=== PATIENT | male | born 1970 | race Caucasian/White ===

== ENCOUNTER 2023-12-23 18:15 | Inpatient (IN) | payer OTHER, SELFPAY ==
[2023-12-23] VITALS (9 sets, daily range): BP systolic 151–175; BP diastolic 74–98; BMI 22.8; BMI 20.4
--- NOTE | 2023-12-23 13:37 | ED.GENMED ---
History of Present Illness
General
Chief Complaint: Substance Abuse
Source: patient
Time Seen by Provider: 12/23/23 13:23
History of Present Illness
History of Present Illness:
53yoM with a history of IV drug use [facility] for evaluation of vomiting. Patient was arrested yesterday. Last use of heroin was yesterday morning. He reports vomiting continuously since last night. Emesis appears to be coffee
ground colored. EMS saw the vomitus and did confirm that it was coffee ground emesis. He is also having withdrawal symptoms including anxiety, tremors, and sweating. Patient also endorses abdominal pain. Patient was sent to the ED due to concern for
dehydration. He received PO Zofran prehospital. Patient is not on any prescription medications but has not seen a PCP in many years. He denies any drug or alcohol use other than heroin. He smokes 1-2 cigarettes/day. Previous abdominal surgeries
include a colon resection in 2005 from perforated diverticulitis.
Phy Exam
Physical Exam
Physical Exam:
Ill appearing, tremulous
General Physical Exam
General Presentation: moderate distress
General Skin: warm and dry
General Habitus: normal
General Mental: alert
Cardiovascular Exam
Cardiovascular Exam: regular rate/rhythm
Pulmonary Exam
Pulmonary Exam: lungs clear, no respiratory distress, no rales, no crackles and no wheezing
Gastrointestinal Exam
Gastrointestinal Exam: soft, non distended and surgical scar
Palpation: generalized: Mild tenderness
Elton Coma Scale
Eye Opening: Spontaneous
Verbal Response: Oriented
Motor Response: Obeys Commands
GCS Total Score: 15
Skin Exam
Skin Exam: normal color and warm/dry
Psychiatric Exam
Psychiatric Exam: anxious
Course
Orders/Labs/Results
Orders:
Orders
12/23/23 Breakfast
NPO
Allow oral meds: Yes
Allow clear liquids: Sips of Clears
NPO with Ice Chips: Yes
12/23/23 13:25
Electrocardiogram (*1) Urgent
Reason for Study: Other
Other Reason for Exam: detoxing
EKG- Treatment ONCE
12/23/23 13:31
0.9% Sodium Chloride 1000 ml [Nss] 1,000 ml IV BOLUS
12/23/23 13:32
Type+Screen Urgent
12/23/23 13:44
Iohexol [Omnipaque] See Protocol PO NOW STA
12/23/23 13:45
Buprenorphine [Subutex] 8 mg SL DAILY
12/23/23 14:07
CMP [Comprehensive Metabolic Panel] Urgent
Complete Blood Count/With Diff Urgent
Ferritin Routine
Comment: ADD ON
Folate Routine
Comment: ADD ON
Hepatitis C Antibody Urgent
Comment: ADD ON
Iron Urgent
Comment: ADD ON
Lipase Urgent
Magnesium Urgent
PTT Urgent
Prothrombin Time Urgent
Total Iron Binding Urgent
Comment: ADD ON
Troponin I Urgent
Vitamin B12 Routine
Comment: ADD ON
12/23/23 14:22
Ondansetron Injectable [Zofran] 4 mg IV NOW STA
12/23/23 14:54
Pantoprazole [Protonix IV] 80 mg IV NOW STA
12/23/23 16:28
CT Abd/pelvis W Iv Cont Urgent
Comment:
Reason For Exam: LLQ pain, coffee ground emesis
12/23/23 17:51
Admit/Transfer Patient As Directed
Co-Sign Provider:
Level of Care: Inpatient admission
Assign to:: IMU- Intermediate Care
Physician / Group: Angel
Diagnosis: GI Bleed, Opioid Withdrawal
Reason for Hospitalization: GI Consult, IVFS, PPI, Octreotide
Expected length of stay greater than two midnights?: Yes
ELOS- Estimated Length of Stay in days: 3
I certify the patient meets the requirements for IP care: Yes
PRN Pain Medication Management As Directed
May give lesser potent ordered pain med per pt: Yes
preference::
Protocol:: Medication orders for pain may be administered in a
manner that supports deferring to patient preference
when the pt is:
- Requesting an ordered lesser potent pain medication.
Least to most potent pain medications are defined
as: acetaminophen < NSAID < tramadol < opioids
(morphine, oxycodone, hydromorphone).
- Requesting a lesser dose of the same medication IF
ORDERED.
- Requesting a less intrusive route of administration
if both routes are prescribed by the provider (PO <
IV).
12/23/23 17:52
Code Status As Directed
Resuscitation Status: Full Code
12/23/23 17:58
Add On- LAB Routine
Tests Added?: iron, ferritin, tibc, folate, vit b12
Add On- LAB Urgent
Tests Added?: hepatitis C antibody
12/23/23 18:01
Fentanyl, Urine Urgent
Urine Drug Abuse Screen Urgent
Date Specimen was Collected: 12/23/23
Time Specimen was Collected: 18:04
12/23/23 19:35
0.9% Sodium Chloride 1000 ml [Nss] 1,000 ml IV 125 mls/hr
Buprenorphine [Subutex] 8 mg SL PRN PRN
Ondansetron Injectable [Zofran] 4 mg IV Q6HPRN PRN
Pantoprazole 80 mg/100 ml Nss [Protonix] 80 mg in 100 ml IV Q10H
Tizanidine [Zanaflex] 2 mg PO Q6HPRN PRN
12/23/23 19:35
Electrocardiogram (*1) Routine
Reason for Study: QTc Monitoring
Comment: if not already done in ED
GASTROINTESTINAL CONSULT Routine
Consulting Provider: Ketty Hackett
Was physician already notified: Yes
Activity As Directed
Activity Level: Out of Bed- Chair
Capnography/ETCO2 As Directed
Clinical Opioid Withdrawal Scale (COWS) .PRN
I&O [Intake/ Output] As Directed
Frequency: q12h
Pneumatic Compression Sleeves As Directed
Type: Knee high
Vital Signs As Directed
Frequency: Per unit guidelines
Weight As Directed
Frequency: Daily
DX Deep Vein Thrombosis Video Routine
12/23/23 20:00
H&H Q6H
Octreotide Acetate [Sandostatin] 600 mcg 0.9% Sodium Chloride 500 ml [Nss] 500 ml IV Q12H
12/24/23 00:00
Acetaminophen [Tylenol] 1,000 mg PO Q8
12/24/23 02:00
H&H Q6H
12/24/23 06:00
Complete Blood Count/No Diff IN AM
Comprehensive Metabolic Panel IN AM
12/24/23 08:00
H&H Q6H
Buprenorphine [Subutex] 4 mg SL ONCE PRN PRN
Buprenorphine [Subutex] See Dose Instructions SL ONCE ONE
12/24/23 14:00
H&H Q6H
12/24/23 20:00
H&H Q6H
12/25/23 02:00
H&H Q6H
12/25/23 08:00
Buprenorphine [Subutex] See Dose Instructions SL DAILY
Abnormal Lab Results
12/23/23
14:07
WBC 11.5 H 10^3/uL
(4.8-10.8)
RBC 3.51 L 10^6/uL
(4.70-6.10)
Hgb 10.7 L g/dL
(13.0-18.0)
Hct 31.1 L %
(39.0-52.0)
RDW 15.8 H %
(11.5-14.5)
Absolute Neuts (auto) 9.5 H 10^3/uL
(1.4-6.5)
Neutrophils % 83.0 H %
(42.2-75.2)
Lymphocytes % 11.1 L %
(20.5-51.1)
PT 17.1 H Sec
(11.4-14.6)
APTT 54.2 H Sec
(23.4-35.0)
Carbon Dioxide 31 H mmol/L
(22-30)
BUN 21 H mg/dl
(9-20)
Creatinine 0.5 L mg/dL
(0.7-1.3)
Glucose 125 H mg/dl
(70-99)
AST 163 H U/L
(17-59)
ALT 95 H U/L
(0-50)
Albumin 3.4 L g/dl
(3.5-5.0)
Lipase 352 H U/L
(23-300)
12/23/23 14:07
12/23/23 14:07
Vital Signs
Initial and Last Documented VS:
Initial Vital Signs
Pulse Resp
71 15
12/23/23 13:25 12/23/23 13:25
Last Documented Vital Signs
Temp Pulse Resp BP Pulse Ox
97.5 F 92 16 151/81 97
12/23/23 13:26 12/23/23 18:45 12/23/23 18:45 12/23/23 18:00 12/23/23 18:45
MDM/Problems Addressed
Differential Diagnosis Includes:
53yoM here with vomiting and opioid detox. Last use of heroin was yesterday morning. EMS reports coffee ground emesis. He is afebrile and hemodynamically stable. He is ill appearing and tremulous on exam. No signs of peritonitis on abdominal exam.
Differential diagnosis includes but is not limited to: opioid withdrawal, dehydration, electrolyte abnormality, JEREMIAH, GI bleed
Initial ED plan: Check abdominal labs, magnesium, lactate, coags, type and screen, troponin/EKG, and CT abdomen. IV fluid bolus. Will give Subutex for withdrawal symptoms.
*EKG
Interpreted by ED Provider?: Yes
EKG Intrepretation Date: 12/23/23
Heart Rate: 67
Rate: normal
Rhythm: sinus and PAC's
Interval: normal interval
QRS Pattern: normal QRS
*Critical Care Note
Total Time (30-74mins, 75-104mins- exclusive of procedures): Not Applicable
Update Note
Update Note:
Hemoglobin 10.7, no prior labs to compare to. LFTs and lipase mildly elevated. CT abdomen shows evidence of mild cirrhosis and portal hypertension. Patient given IV Protonix and was admitted for further evaluation and management.
ED Attending Note
-
Portions of this chart may have been created with voice recognition software.� Occasional wrong word or��sound alike� substitutions may have occurred due to the inherent limitations of voice recognition software.
Discharge Plan
Departure
Patient Disposition: Admit
Date of Disposition: 12/23/23
Time of Disposition: 17:27
Presentation/result/management discussed w/ accepting MD/DO: Hospitalist
Discharge Problem:
Coffee ground emesis, Opioid withdrawal
Interventions
Interventions:
*Risk Screen - Suicide Last Done: 12/23/23 13:26
*General Assessment Last Done: 12/23/23 13:26
*Neglect/Abuse Screening Last Done: 12/23/23 13:26
ED- Fall Risk Assessment Last Done: 12/23/23 18:17
*ED COVID-19 Vaccine History Last Done: 12/23/23 13:26
*Nursing Disposition Last Done: 12/23/23 18:56
ED-Psychological Assessment Last Done: 12/23/23 13:32
Discharge Date and Time
Discharge Date/Time: 12/23/23 18:57
[2023-12-23] MEDS: NSS 1000 IV ×2 (14:11→20:44)
[2023-12-23 14:13] LABS: % Basophils 0.1 % (0-2); % Immature Granulocytes 0.3 % (0-0.5); % Lymphocytes 11.1 % (20.5-51.1); % Monocytes 5.5 % (1.7-9.3); Absolute Lymphocytes 1.3 10^3/uL (1.2-3.4); Absolute Monocytes 0.6 10^3/uL (0.1-0.6); Absolute Neutrophils 9.5 10^3/uL (1.4-6.5); Hematocrit 31.1 % (39.0-52.0); Hemoglobin 10.7 g/dL (13.0-18.0); Mean Corp Hgb Conc. 34.4 g/dL (33.0-37.0); Mean Corpuscular Hgb 30.5 pg (27.0-31.0); Mean Corpuscular Volume 88.6 fL (80.0-94.0); Mean Platelet Volume 10.2 fL (7.4-10.4); Nucleated Red Blood Cells % 0 % (-); Platelet Count 258 10^3/uL (130-400); Red Blood Cell Count 3.51 10^6/uL (4.70-6.10); Red Cell Dist. Width 15.8 % (11.5-14.5); White Blood Cell Count 11.5 10^3/uL (4.8-10.8)
[2023-12-23] MEDS: SUBUTEX 8 MG SL (14:20)
[2023-12-23] MEDS: OMNIPAQUE 50 ML PO (14:21)
[2023-12-23 14:23] LABS: INR 1.41; PT 17.1 Sec (11.4-14.6)
[2023-12-23 14:25] LABS: APTT 54.2 Sec (23.4-35.0)
[2023-12-23] MEDS: ZOFRAN 4 MG IV (14:29)
[2023-12-23 14:44] LABS: ALT (SGPT) 95 U/L (0-50); AST (SGOT) 163 U/L (17-59); Albumin 3.4 g/dl (3.5-5.0); Alkaline Phosphatase 93 U/L (38-126); Blood Urea Nitrogen 21 mg/dl (9-20); Calcium 9.1 mg/dl (8.4-10.2); Carbon Dioxide 31 mmol/L (22-30); Chloride 104 mmol/L (98-107); Estimated Creatinine Clearance > 125 ml/min; Glucose 125 mg/dl (70-99); Lipase 352 U/L (23-300); Magnesium 1.7 mg/dl (1.6-2.3); Potassium 3.5 mmol/L (3.5-5.1); Sodium 144 mmol/L (135-145); Total Bilirubin 1.1 mg/dl (0.2-1.3); Total Protein 7.5 g/dl (6.3-8.2); Troponin I 0.029 ng/ml; eGFR > 60.00
[2023-12-23] MEDS: PROTONIX IV 80 MG IV (15:01)
--- NOTE | 2023-12-23 18:01 | HPS.HSE ---
Family Physician
-
Family Physician: Facility [facility]
Chief Complaint
-
Coffee Ground Emesis
History of Present Illness
Patient is a 53 y/o male past medical of IV opioid use disorder who presents with coffee ground emesis. Patient reports he last used IV heroin yesterday morning. Later that day he was picked up by police and is now incarcerated at [facility]. He reports continuous vomiting since last night which he describes as coffee ground. He denies any bright red blood. He denies any similar episodes of coffee-ground emesis, or prior history of GI bleed. He reports diffuse
abdominal discomfort, as well as anxiety, tremors and sweating related to withdrawal.
Medical History
Past Medical History
Past Medical History: Reports Other
Additional Past Medical History:
Perforated Diverticulitis
Opioid Use Disorder
Past Surgical History: Reports Other
Additional Past Surgical History:
Sigmoidectomy
Social History
Tobacco: Smoker (1-2 Cigarettes per day)
Alcohol: None
Drug: IVDA (Heroin)
Family History
Family History: Not pertinent
Allergies / Home Medications
Allergies reflects when Allergies were last updated in [employer].
Home Medications with original date entered in [employer]
Allergy/Medication List:
Allergies
Allergy/AdvReac Type Severity Reaction Status Date / Time
No Known Allergies Allergy Unverified 12/23/23 13:54
Home Medications
acetaminophen 300 mg-codeine 30 mg tablet 1 tab PO .TAPER 12/23/23
clonidine HCl 0.1 mg tablet 0.1 mg PO .TAPER 12/23/23
loperamide 2 mg tablet (Anti-Diarrheal (loperamide)) 2 mg PO TIDPRN PRN diarrhea 12/23/23
ondansetron HCl 4 mg tablet 4 mg PO Q8HPRN PRN nausea 12/23/23
Review of Systems
-
A 12 point ROS was completed and negative except as noted: Yes
Constitutional: Denies Fever or Chills
Respiratory: Denies Cough or Trouble Breathing
Cardiac: Denies Chest Pain or Palpitations
Abdomen/GI: Reports See HPI
Physical Exam
Vital Signs
Vital Signs
Temp Pulse Resp BP Pulse Ox
97.5 F 79 12 155/74 97
12/23/23 13:26 12/23/23 17:30 12/23/23 17:30 12/23/23 17:29 12/23/23 17:30
Physical Exam
General: Well Developed, Conversant and Appears in Distress (Tremulous)
HEENT: Anicteric and Moist mucous membranes
Respiratory: Clear and Non Labored Respirations
Cardiac: S1/S2 and Regular Rhythm
GI: Soft and Tender (Mild throughout)
Musculoskeletal: No Clubbing, No Cyanosis and No Edema
Skin: Warm and Dry
Neuro: Awake, Alert, Oriented and Nonfocal/grossly intact
Psych: Calm
Laboratory Results
-
12/23/23 14:07
Laboratory Results
PT 17.1 Sec (11.4-14.6) H 12/23/23 14:07
INR 1.41 12/23/23 14:07
APTT 54.2 Sec (23.4-35.0) H 12/23/23 14:07
Lactic Acid Cancelled 12/23/23 13:31
Total Bilirubin 1.1 mg/dl (0.2-1.3) 12/23/23 14:07
AST 163 U/L (17-59) H 12/23/23 14:07
ALT 95 U/L (0-50) H 12/23/23 14:07
Alkaline Phosphatase 93 U/L (38-126) 12/23/23 14:07
Troponin I 0.029 ng/ml 12/23/23 14:07
Lipase 352 U/L (23-300) H 12/23/23 14:07
Abd/Pelvis CT Scan:
1. MILD HEPATIC CIRRHOSIS, moderate diffuse hepatic steatosis, and portal hypertension.
2. Small volume of abdominal and pelvic ascites.
3. Diffuse small bowel and colonic wall thickening and submucosal edema most suggestive of PORTAL HYPERTENSIVE ENTEROCOLOPATHY. An infectious enterocolitis is an alternative diagnostic possibility if there are signs/symptoms of infection.
4. Mild esophageal varices.
5. Mild splenomegaly.
6. Previous sigmoidectomy.
7. Fecal impaction in the rectum.
Data Reviewed
-
CT Scan: Report Reviewed by me
Lab Data: Labs Reviewed by me
Impression/Plan
-
Coffee Ground Emesis
-CT scan shows evidence of cirrhosis and esophageal varices
-Consult GI
-Trend serial Hgb
-Continue NPO/IVFs
-Continue pantoprazole and octreotide infusion
-Start empiric antibiotics
Opioid Use Disorder with Acute Withdrawal
-Continue buprenorphine
-Monitor COWS
DVT proph: SCDs
Code Status: Full Code
[2023-12-23 18:39] LABS: Iron 123 ug/dl (49-181)
[2023-12-23 18:50] LABS: Percent Saturation 37 % (20-50); Total Iron Binding Capacity 328 ug/dl (261-462)
--- NOTE | 2023-12-23 19:00 | W.PN.UPDATE ---
Update Note
Progress Note Update
This is an addendum to the H&P written by Lindy Phelan on 12/23/2023. 53-year-old male past medical history of IV heroin use last used yesterday morning. He was arrested yesterday and presents for coffee-ground emesis and abdominal pain.
No other drug use. No alcohol or smoking history.
Transaminitis on labs. CT scan shows mild hepatic cirrhosis, moderate diffuse hepatic steatosis, portal hypertension. Mild esophageal varices, mild splenomegaly. Fecal impaction in the rectum. There is also diffuse small bowel and colonic wall
thickening and submucosal edema suggestive of portal hypertensive enterocolopathy. Infectious enterocolitis is also possible. Last bowel movement was 3 days ago.
Opiate withdrawal protocol. Unclear etiology of coffee-ground emesis. Possibly secondary to Dior-Acharya tear/peptic ulcer disease, less likely secondary to variceal bleeding. N.p.o., Protonix drip, octreotide drip. IV fluids. GI consulted for
potential endoscopy tomorrow. Zosyn to cover infectious enterocolitis. Dulcolax suppository for fecal infection.
[2023-12-23 19:28] LABS: Hepatitis C Antibody Reactive (Negative)
[2023-12-23 19:47] LABS: Folate 14.5 ng/ml (2.76-20); Vitamin B12 879 pg/ml (239-931)
[2023-12-23] MEDS: SANDOSTATIN 500.6 MCG IV (20:45)
[2023-12-23] MEDS: PROTONIX 100 IV (20:45)
--- NOTE | 2023-12-23 20:45 | PTCARENOTE ---
Received pt from ED RN. Pt pulled over from the stretcher to our bed. Pt is AAOx3. NSR on the monitor. On RA O2 sat 95%, lungs clear. Pt uses the urinal. Dulcolax suppository ordered, pt refused. Scattered track galarza from IV drug abuse, and
scattered scabs on b/l LE. NS infusing @ 125 ml/hr. Protonix gtt infusing @ 10 ml/hr. Sandostatin gtt infusing @ 41.7 ml/hr. CHG bath provided. Two correction officers @ bedside. Pt is laying in bed with call cota in reach.
[2023-12-23] MEDS: ZOSYN 50 IV (21:01)
[2023-12-23 21:06] LABS: Hematocrit 29.1 % (39.0-52.0)
[2023-12-23 21:23] LABS: Amphetamines Negative (Negative); Barbiturates Negative (Negative); Benzodiazepines Negative (Negative); Buprenorphine Positive (Negative); Cocaine Positive (Negative); Marijuana Negative (Negative); Methadone Negative (Negative); Methamphetamines Negative (Negative); Opiates Positive (Negative); Phencyclidine Negative (Negative)
[2023-12-23 21:24] LABS: Tricyclic Antidepressants Negative (Negative)
[2023-12-23 21:35] LABS: Fentanyl, Urine Positive (Negative)
--- NOTE | 2023-12-23 21:57 | PTCARENOTE ---
Pt ordered ABO2, pt is refusing to be stuck again. Education provided. JOSE Flanagan notified.
[2023-12-23] MEDS: ZANAFLEX 2 MG PO (23:42)
[2023-12-23] MEDS: MELATONIN 5 MG PO (23:42)
[2023-12-24] VITALS (15 sets, daily range): BP systolic 146–166; BP diastolic 77–91; BMI 20.7
[2023-12-24] MEDS: ZOSYN 50 IV ×3 (02:59→15:38)
[2023-12-24 03:38] LABS: Hematocrit 28.5 % (39.0-52.0); Hemoglobin 10.2 g/dL (13.0-18.0); Mean Corp Hgb Conc. 35.8 g/dL (33.0-37.0); Mean Corpuscular Hgb 31.4 pg (27.0-31.0); Mean Corpuscular Volume 87.7 fL (80.0-94.0); Red Blood Cell Count 3.25 10^6/uL (4.70-6.10); Red Cell Dist. Width 15.5 % (11.5-14.5); White Blood Cell Count 10.4 10^3/uL (4.8-10.8)
[2023-12-24 03:58] LABS: ALT (SGPT) 87 U/L (0-50); AST (SGOT) 140 U/L (17-59); Alkaline Phosphatase 87 U/L (38-126); Blood Urea Nitrogen 22 mg/dl (9-20); Calcium 8.8 mg/dl (8.4-10.2); Carbon Dioxide 27 mmol/L (22-30); Chloride 107 mmol/L (98-107); Estimated Creatinine Clearance > 125 ml/min; Glucose 130 mg/dl (70-99); Potassium 3.7 mmol/L (3.5-5.1); Sodium 143 mmol/L (135-145); Total Bilirubin 1.1 mg/dl (0.2-1.3); Total Protein 6.8 g/dl (6.3-8.2); eGFR > 60.00
[2023-12-24] MEDS: NSS 1000 IV ×2 (05:45→15:38)
--- NOTE | 2023-12-24 07:37 | W.PN.HOSP.TC ---
Addendum entered and electronically signed by Mily Owens MD 12/24/23 21:52:
I saw and evaluated the patient independently. I reviewed the resident�s note and agree with findings and plan as documented by Dr. Schroeder.
GENERAL: well developed, well nourished, male in no apparent distress
HEENT: NC/AT
HEART: regular rate and rhythm, +S1, +S2
LUNGS : clear to auscultation bilaterally
ABDOM: soft, nontender, nondistended, + bowel sounds
EXT: no cyanosis, clubbing, or edema
NEUROLOGIC: grossly intact
Coffee Ground Emesis--possibly due to PUD, DUD, less likely varices, or Dior Acharya tear--apprec GI--s/p EGD with small and superficial duodenal ulcers in bulb and Incidental small gastric AVM, treated with bipolar cautery--follow H&H--transfuse
to keep HGB ~9 if needed--octreotide drip off--cont PPI--clears
Hx of Cirrhosis--cont rocephin for SBP proph--no significant varices noted
Opioid Use Disorder with Acute Withdrawal--Continue buprenorphine--Monitor COWS
essential HTN--restart clonidine (not taking can precipitate rebound)--start hydralazine with holding parameters
DVT proph: SCDs
Code Status: Full Code
Original Note:
Today's Communication/Plan
-
.
Assessment / Plan
Assessment / Plan
The patient is a 53 year old male who presented to ER evaluation for vomiting from the local intermediate. EMS saw the vomitus and did confirm that it was coffee ground emesis. At he present to ER, the patient had withdrawal symptoms including anxiety,
tremors, and sweating. The patient has a PMH of polysubstance use, perforated diverticulitis and Hepatitis C. His abdominal CT showed mild hepatic cirrhosis. GI team did asses the patient and the patient had a GED today showing few, small and
superficial duodenal ulcers in bulb and sweep without high risk stigmata but no GV or duodenal varices.
#Coffee Ground Emesis
-CT scan shows evidence of cirrhosis and esophageal varices
-EGD on 12/23:Few, small and superficial duodenal ulcers in bulb and sweep without high risk stigmata. Small, grade I EV that completely flattened with insufflation (thus no banding performed). No GV or duodenal varices. Incidental small gastric
AVM, treated with bipolar cautery
-Continue IV PPI
-Continue IV Ceftriaxone
-May stop IV Octreotide.
- Trend Hgb with serial CBC: 12/22 hgb 10 and 12/23 Hgb 10.2
-Continue NPO/IVFs
#HT Most likely Secondary
Hydralazine 5 mg Q6H
Hold if SBP<90
#Opioid Use Disorder
-Continue buprenorphine
-Monitor COWS
#Constipation
MiraLAX, Colace as needed
DVT: SCDs
Anticipated Discharge: 24 - 48 hours
Subjective/Interval History
-
Date of Service: December 24, 2023
The patient was seen in his bed. He was complaining some abdominal pain but not severe.
Objective Data
-
Labs:
Laboratory Results
12/23/23 12/24/23 12/24/23
20:41 03:21 03:21
WBC 10.4
Hgb 10.0 L Cancelled 10.2 L
Hct 29.1 L Cancelled
Plt Count
Sodium
Potassium
Chloride
Carbon Dioxide
BUN
Creatinine
Glucose
Calcium
Total Bilirubin
AST
ALT
Alkaline Phosphatase
12/24/23 12/24/23 12/24/23
03:21 08:00 14:00
WBC
Hgb Pending Pending
Hct 28.5 L Pending Pending
Plt Count
Sodium 143
Potassium 3.7
Chloride 107
Carbon Dioxide 27
BUN 22 H
Creatinine 0.6 L
Glucose 130 H
Calcium 8.8
Total Bilirubin 1.1
AST 140 H
ALT 87 H
Alkaline Phosphatase 87
12/24/23
20:00
WBC
Hgb Pending
Hct Pending
Plt Count
Sodium
Potassium
Chloride
Carbon Dioxide
BUN
Creatinine
Glucose
Calcium
Total Bilirubin
AST
ALT
Alkaline Phosphatase
Vital Signs:
Vital Signs
Temp Pulse Resp BP Pulse Ox
98.7 F 78 12 164/89 94
12/24/23 03:02 12/24/23 06:00 12/24/23 06:00 12/24/23 06:00 12/24/23 06:00
I&O
12/23/23 12/24/23 12/25/23
06:59 06:59 06:59
Intake Total 2270.4 / 2270.4
Output Total 350 / 350
Balance 1920.4 / 1920.4
Review of Systems
-
EENT: Reports No Symptoms Reported
Respiratory: Reports No Symptoms
Cardiac: Reports No Symptoms
Abdomen/GI: Reports Abdominal Pain and Other (mid abdominal area )
Genitourinary: Reports No Symptoms
Musculoskeletal: Reports No Symptoms
Skin: Reports No Symptoms
Neuro: Reports No Symptoms
Physical Exam
-
HEENT: Normocephalic and Atraumatic
Respiratory: Clear to Auscultation
Cardiac: Regular Rhythm and S1/S2
GI: Soft, Nontender and Other (mid abdominal pain. No guarding. No rebound )
Musculoskeletal: No Clubbing
Skin: Warm
Neuro: Awake, Alert, Oriented and AO x 3
--- NOTE | 2023-12-24 07:46 | CON.GI ---
Addendum entered and electronically signed by Babak Garcia DO 12/24/23 09:15:
I saw and examined the patient. The [facility]OR OF [facility]'s note was reviewed and I agree with the note.
Comment: Mr Jimenez is a 53 y.o male with past medical history of opioid abuse (heroin, etc), hx of treatment-naive chronic HCV, hx of perforate diverticulitis (s/p prior sigmoidectomy) and recent incarceration (two days ago) who presented from
long-term with witnessed coffee ground emesis by EMS. No prior history of cirrhosis, but notes longstanding HCV which has never been treated. Denies any known liver disease. No other EtOH or NSAIDs. No prior similar episodes or further episodes on
admission. Does note mild abdominal pain in his epigastric region but no melena or bloody stools.HD-stable with labs notable for BUN 20s and Hgb 10s. Transaminses mildly elevated likely 2/2 HCV but no evidence of overt synthetic dysfunction with nml
plts although mildly low albumin 3s. FIB-4 3.44 pts suggestive of advd fibrosis. CT Abd/pelvis revealing mild hepatic cirrhosis in background of hepatic steatosis and portal HTN with small ascites and mild EV and splenomegaly along with incidental
fecal impaction. Etiology suspicious for non-variceal UGIB either in setting of PUD versus gastroduodenitis (2/2 cocaine use seen on UDS, although denies this) versus MWT versus esophagitis versus gastroduodenal erosions. Doubt variceal GI bleed
given his presentation, although may have PHG versus GAVE. However, given his chronic liver disease and concern for cirrhosis on CT imaging agree with empiric IV Octreotide along with IV Ceftriaxone for completion pending further evaluation with EGD.
Recommendations:
- Ensure two large bore IVs at all times
- Keep NPO
- IV PPI gtt along with IV Octreotide gtt until EGD
- IV Ceftriaxone 1 gm q daily for ppx given UGIB and ascites seen on CT
- Plan for EGD today, 12/24/2023, for further evaluation
- Check viral hepatitis serologies including total HAV, HBV serologies with HBsAg, Total HBcAb and HBsAb along with HCV
- Give enemas from below given incidental fecal impaction seen on CT imaging
- Ultimately, will need outpatient f/u with GI for further evaluation of his treatment-naive chronic HCV and likely cirrhosis
- See EGD report for additional findings and recommendations
GI team will continue to follow while inpatient.
Addendum entered and electronically signed by JOSE Casanova 12/24/23 08:25:
MELD 3.0 10
Original Note:
Consultation
-
Date/Time Consultation Requested: 12/23/231944
Date/Time Consultation Performed: 12/24/23 0700
Requesting Provider: Lindy Phelan PA-C
Performing Provider: JOSE Martinez, Babak Garcia DO
Reason for Consultation: coffee ground emesis
Medical History
Chief Complaint / HPI
Chief Complaint: vomiting blood
History of Present Illness:
Pt is a 53yo with hx opioid abuse disorder, heroin use, hepatitis C (not treated), perforated diverticulitis with prior sigmoidectomy, present for coffee ground emesis after being at local long-term for 2 days. Per patient vomitted larger amount of
coffee ground witnessed by EMS. There was also concern for some withdrawal symptoms on admission. hbg 10 on arrival. No hx EGD. Denies NSAID or anticoagulation use. He initially denies substance abuse but tox screen + for opiates, buprenorphine,
Fentanyl, and cocaine.
Pt admits to some mid abdominal pain. CT was completed on admission with changes of cirrhosis, with EV, splenomegaly small volume ascites diffuse SB and colonic wall thickening suggestive of portal HTN enterocolopathy vs infectious entercolitis.
Also noted sigmoidectomy and fecal impaction. otherwise denies dysphagia, GERD, diarrhea, constipation or rectal bleeding.
Past Medical History
Past Medical History: Other (IVDA, hep C)
Past Surgical History: Bowel Resection
Social History
Tobacco: Smoker (2 cig per day)
Alcohol: None
Drug: Other (pt denies but noted + tox screen)
Living: Jail (last 2 days )
Employment: Not Employed
Family History
Family History: Reviewed & Not Pertinent
Allergies / Home Medications
Allergy/AdvReac Type Severity Reaction Status Date / Time
No Known Allergies Allergy Unverified 12/23/23 13:54
�Medication �Instructions �Recorded
acetaminophen 300 mg-codeine 30 mg 1 tab PO .TAPER 12/23/23
tablet
clonidine HCl 0.1 mg tablet 0.1 mg PO .TAPER 12/23/23
loperamide 2 mg tablet 2 mg PO TIDPRN PRN diarrhea 12/23/23
(Anti-Diarrheal (loperamide))
ondansetron HCl 4 mg tablet 4 mg PO Q8HPRN PRN nausea 12/23/23
Review of Systems
-
History Source: Patient
Constitutional: Reports No Symptoms
EENT: Reports No Symptoms
Respiratory: Reports No Symptoms
Cardiac: Reports No Symptoms
Abdomen/GI: Reports Abdominal Pain, Nausea and Vomiting
: Reports No Symptoms
Musculoskeletal: Reports No Symptoms
Skin: Reports No Symptoms
Neurological: Reports Weakness
Endocrine: Reports No Symptoms
Hematologic/Lymphatic: Reports Bleeding
Vital Signs
Temp Pulse Resp BP Pulse Ox
98.7 F 78 12 164/89 94
12/24/23 03:02 12/24/23 06:00 12/24/23 06:00 12/24/23 06:00 12/24/23 06:00
Physical Exam
Exam
General: Well Developed, Well Nourished and No Apparent Distress
HEENT: Normocephalic and Anicteric
Respiratory: Clear
Cardiac: Regular Rhythm
GI: Soft, Non Distended and Tender (mid abdomen )
Genito-urinary: No Costovertebral Tender
Musculoskeletal: No Clubbing and No Cyanosis
Skin: Warm and Dry
Neuro: Awake, Alert and AO x 3
Psych: Calm
Results
WBC 10.4 10^3/uL (4.8-10.8) 12/24/23 03:21
Hgb 10.2 g/dL (13.0-18.0) L 12/24/23 03:21
Hgb Cancelled 12/24/23 03:21
Hct 28.5 % (39.0-52.0) L 12/24/23 03:21
Hct Cancelled 12/24/23 03:21
MCV 87.7 fL (80.0-94.0) 12/24/23 03:21
Plt Count 10^3/uL (130-400) 12/24/23 03:21
Absolute Neuts (auto) 9.5 10^3/uL (1.4-6.5) H 12/23/23 14:07
PT 17.1 Sec (11.4-14.6) H 12/23/23 14:07
INR 1.41 12/23/23 14:07
APTT 54.2 Sec (23.4-35.0) H 12/23/23 14:07
Sodium 143 mmol/L (135-145) 12/24/23 03:21
Potassium 3.7 mmol/L (3.5-5.1) 12/24/23 03:21
Chloride 107 mmol/L (98-107) 12/24/23 03:21
Carbon Dioxide 27 mmol/L (22-30) 12/24/23 03:21
BUN 22 mg/dl (9-20) H 12/24/23 03:21
Creatinine 0.6 mg/dL (0.7-1.3) L 12/24/23 03:21
Calcium 8.8 mg/dl (8.4-10.2) 12/24/23 03:21
Total Bilirubin 1.1 mg/dl (0.2-1.3) 12/24/23 03:21
AST 140 U/L (17-59) H 12/24/23 03:21
ALT 87 U/L (0-50) H 12/24/23 03:21
Alkaline Phosphatase 87 U/L (38-126) 12/24/23 03:21
Lipase 352 U/L (23-300) H 12/23/23 14:07
Hepatitis C Antibody Reactive (Negative) 12/23/23 14:07
Diagnostic Image Results:
12/23/23 CT Abd/pelvis W Iv Cont
1. MILD HEPATIC CIRRHOSIS, moderate diffuse hepatic steatosis, and portal hypertension.
2. Small volume of abdominal and pelvic ascites.
3. Diffuse small bowel and colonic wall thickening and submucosal edema most suggestive of PORTAL HYPERTENSIVE ENTEROCOLOPATHY. An infectious enterocolitis is an alternative diagnostic possibility if there are signs/symptoms of infection.
4. Mild esophageal varices.
5. Mild splenomegaly.
6. Previous sigmoidectomy.
7. Fecal impaction in the rectum.
Prior GI Procedures:
EGD: none
Colonoscopy: 2005 recalls as normal
Assessment / Plan
-
Pt is a 53yo with hx opioid abuse disorder, heroin use, hepatitis C (not treated), perforated diverticulitis with prior sigmoidectomy, present for coffee ground emesis after being at local long-term for 2 days. Per patient vomited larger amount of
coffee ground witnessed by EMS. There was also concern for some withdrawal symptoms on admission. hbg 10 on arrival. No hx EGD. Denies NSAID or anticoagulation use. He initially denies substance abuse but tox screen + for opiates, buprenorphine,
Fentanyl, and cocaine. Pt also with abdominal pain some mid abdominal pain. CT was completed on admission with changes of cirrhosis, with EV, splenomegaly small volume ascites diffuse SB and colonic wall thickening suggestive of portal HTN
enterocolopathy vs infectious enterocolitis. Also noted sigmoidectomy and fecal impaction.
-coffee ground emesis
-mild anemia
-abdominal pain
-CT with SB and colonic thickening with concern for portal HTN enterocolopathy vs infectious enterocolitis
-CT suggestive of cirrhosis
-hx untreated hep C with reactive hep C ab on admission
-elevated transaminases
-elevated lipase
-mild coagulopathy
-hypoalbuminemia
-fecal impaction per CT
-opioid withdrawal
-hx sigmoid resection for diverticular disease
PLAN:
etiology of coffee ground emesis related to EV bleeding with noted cirrhosis, portal gastropathy, MW tear, PUD vs other
currently stable from withdrawal
plan for EGD today
NPO
cont PPI and octreotide gtt
trend hbg
add enema after EGD with fecal impaction and lactulose daily
pt with noted cirrhosis on imaging -- denies hx prior liver issues but admits to hx untreated hep C
will add hep A and B and AFP
will need further OP follow up for liver serology work up with hep C RNA to confirm status and consider treatment
monitor for withdrawal
-
-
Thank you for consultation and allowing me to participate in the patient's care. Please call the radiation engineer GI physician during the after hours with any questions or concerns.
[2023-12-24] MEDS: SANDOSTATIN 500.6 MCG IV (08:17)
[2023-12-24] MEDS: PROTONIX 100 IV (08:19)
--- NOTE | 2023-12-24 09:00 | PTCARENOTE ---
Npo this am maintained. IVF, IV sandostatin IV antibx and IV Protonix gtt infusing as ordered. Report given to GI Lab and escorted with guards and monitored bed.
--- NOTE | 2023-12-24 09:56 | CM ---
Patient seen at bedside on [facility] with [facility] guards at bedside. CM will call to [facility] to confirm plan of care and return to [facility] when medically appropriate. CM will continue to follow for discharge planning needs.
--- NOTE | 2023-12-24 10:18 | W.PN.UPDATE ---
Update Note
Progress Note Update
S/p EGD 12/23 with few, small and superficial duodenal ulcers in bulb and sweep without high risk stigmata. Small, grade I EV that completely flattened with insufflation (thus no banding performed). No GV or duodenal varices. Incidental small gastric
AVM, treated with bipolar cautery. Recommend IV PPI and IV Ceftriaxone. May stop IV Octreotide. Okay for CLD and then may ADAT. Trend Hgb with serial CBC. See additional findings and recommendations as outlined on EGD report.
Discussed with primary internal medicine team this AM.
--- NOTE | 2023-12-24 10:58 | PTCARENOTE ---
Returned from PACU, AAO sleepy. IVF, IV sandostatin IV antibx and IV Protonix gtt infusing. C/o pain 10/10 stomach. Clear liquid diet order - guards in room will order tray for him. VSS
[2023-12-24] MEDS: SUBUTEX 8 MG SL (12:21)
[2023-12-24] MEDS: DUPHALAC/CHRONULAC 20 GRAMS PO (12:22)
[2023-12-24] MEDS: ZANAFLEX 2 MG PO ×2 (12:30→20:30)
--- NOTE | 2023-12-24 16:44 | PTCARENOTE ---
IV access poor- VAT team aware-
[2023-12-24] MEDS: APRESOLINE 5 MG IV (17:18)
[2023-12-24] MEDS: DILAUDID 0.25 MG IV ×2 (17:19→23:27)
--- NOTE | 2023-12-24 19:26 | PTCARENOTE ---
2 very large formed stools s/p lactulose today- d/w Alejandro patel to disregard enema.
[2023-12-24] MEDS: PROTONIX IV (19:36)
[2023-12-24] MEDS: NSS (PRESERVATIVE FREE) 10 ML IV (20:29)
[2023-12-24] MEDS: STERILE WATER FOR INJECTION 10 ML IV (20:30)
[2023-12-24] MEDS: PROTONIX IV 40 MG IV (20:30)
[2023-12-24] MEDS: ROCEPHIN 1000 MG IV (20:30)
[2023-12-24] MEDS: ZOFRAN 4 MG IV (20:43)
--- NOTE | 2023-12-24 20:45 | PTCARENOTE ---
Received pt from [facility]. Pt is AAOx3, flat/withdrawn. NSR on the monitor. On RA O2 sat 93%, lungs clear, tachypneic. Pt c/o nausea, PRN Zofran given (see MAR). Pt uses urinal/BSC. NS infusing @ 125 ml/hr. Pt is laying in bed with call cota in
reach.
[2023-12-24 22:06] LABS: Hematocrit 27.6 % (39.0-52.0); Hemoglobin 9.5 g/dL (13.0-18.0)
[2023-12-25] VITALS (14 sets, daily range): BP systolic 151–177; BP diastolic 78–100; BMI 21.3
[2023-12-25] MEDS: NSS 1000 IV ×3 (01:42→19:59)
[2023-12-25] MEDS: NSS IV (03:04)
[2023-12-25 03:26] LABS: Hematocrit 27.3 % (39.0-52.0); Hemoglobin 9.4 g/dL (13.0-18.0); Mean Corp Hgb Conc. 34.4 g/dL (33.0-37.0); Mean Corpuscular Hgb 30.7 pg (27.0-31.0); Mean Corpuscular Volume 89.2 fL (80.0-94.0); Mean Platelet Volume 10.3 fL (7.4-10.4); Platelet Count 153 10^3/uL (130-400); Red Blood Cell Count 3.06 10^6/uL (4.70-6.10); Red Cell Dist. Width 16.1 % (11.5-14.5); White Blood Cell Count 8.7 10^3/uL (4.8-10.8)
[2023-12-25 03:38] LABS: INR 1.38; PT 17.1 Sec (11.4-14.6)
[2023-12-25 03:52] LABS: ALT (SGPT) 79 U/L (0-50); AST (SGOT) 114 U/L (17-59); Alkaline Phosphatase 88 U/L (38-126); Blood Urea Nitrogen 22 mg/dl (9-20); Calcium 8.3 mg/dl (8.4-10.2); Carbon Dioxide 26 mmol/L (22-30); Chloride 107 mmol/L (98-107); Estimated Creatinine Clearance > 125 ml/min; Glucose 104 mg/dl (70-99); Potassium 3.4 mmol/L (3.5-5.1); Sodium 142 mmol/L (135-145); Total Bilirubin 0.9 mg/dl (0.2-1.3); eGFR > 60.00
--- NOTE | 2023-12-25 05:24 | PTCARENOTE ---
Pt with 10 beat run of vtach, strip in the chart. JOSE Flanagan notified. K 3.4, 40 KCl ordered.
[2023-12-25] MEDS: DILAUDID 0.25 MG IV ×3 (05:34→18:32)
[2023-12-25] MEDS: KCL 40 MEQ PO (05:34)
--- NOTE | 2023-12-25 06:31 | W.PN.HOSP.TC ---
Addendum entered and electronically signed by Mily Owens MD 12/25/23 13:46:
I saw and evaluated the patient independently. I reviewed the resident�s note and agree with findings and plan as documented by Dr. Schroeder.
GENERAL: well developed, well nourished, male in no apparent distress
HEENT: NC/AT
HEART: regular rate and rhythm, +S1, +S2
LUNGS : clear to auscultation bilaterally
ABDOM: soft, tender (grimaces with palpation) also says he wants nothing more to eat, nondistended, + bowel sounds
EXT: no cyanosis, clubbing, or edema
NEUROLOGIC: grossly intact
Coffee Ground Emesis---apprec GI--s/p EGD with small and superficial duodenal ulcers in bulb and Incidental small gastric AVM, treated with bipolar cautery--follow H&H--transfuse to keep HGB ~9 if needed--octreotide drip off--cont PPI--clears,
advance as tolerated but pt wnats nothing more to eat--c/o abdominal pain--seems full and tender on exam--? ileus, SBO?--will obtain obstruction series
Hx of Cirrhosis--cont rocephin for SBP proph--no significant varices noted
Opioid Use Disorder with Acute Withdrawal--Continue buprenorphine--Monitor COWS
essential HTN--restart clonidine (not taking can precipitate rebound)--cont hydralazine with holding parameters
DVT proph: SCDs
Code Status: Full Code
Original Note:
Today's Communication/Plan
-
The patient is complaining from mid abdominal pain and reporting he has more pain today. Denies vomiting and reports normal bowel movements.
Assessment / Plan
Assessment / Plan
The patient is a 53 year old male who presented to ER evaluation for vomiting from the local correction. EMS saw the vomitus and did confirm that it was coffee ground emesis. At he present to ER, the patient had withdrawal symptoms including anxiety,
tremors, and sweating. The patient has a PMH of polysubstance use, perforated diverticulitis and Hepatitis C. His abdominal CT showed mild hepatic cirrhosis. GI team did asses the patient and the patient had a GED yesterday showing few, small and
superficial duodenal ulcers in bulb and sweep without high risk stigmata but no GV or duodenal varices. This morning patient complained having abdominal pain.
#Coffee Ground Emesis
-CT scan shows evidence of cirrhosis and esophageal varices
-EGD on 12/23:Few, small and superficial duodenal ulcers in bulb and sweep without high risk stigmata. Small, grade I EV that completely flattened with insufflation (thus no banding performed). No GV or duodenal varices. Incidental small gastric
AVM, treated with bipolar cautery
-Continue IV PPI BID
-Continue IV Ceftriaxone
-Trend Hgb with serial CBC: 12/22 hgb 10 and 12/23 Hgb 10.2 12/24 Hgb 9.4
-WBC 8.7 in normal limits
-Continue NPO/IVFs
#Abdominal Pain
-Mid abdominal area is painful to palpate
- Xray: Obstruct Series W/PA was ordered
-No vomiting
-Normal bowel movements
-Tolerating clear liquid diet
-pain medication PRN
#HT Most likely Secondary
Clonidine 0.1 mg transderm
Hold if SBP<90
#Opioid Use Disorder
-Continue buprenorphine
-Monitor COWS
#Constipation
MiraLAX, Colace as needed
DVT: SCDs
Anticipated Discharge: 24 - 48 hours
Subjective/Interval History
-
Date of Service: December 25, 2023
The patient was seen in his bed complaining from abdominal pain. He had 2 times bowel movement yesterday and it was normal color.
Objective Data
-
Labs:
Laboratory Results
12/24/23 12/24/23 12/24/23
16:32 20:22 21:56
WBC
Hgb Cancelled Cancelled 9.5 L
Hct Cancelled Cancelled 27.6 L
Plt Count
PT
INR
Sodium
Potassium
Chloride
Carbon Dioxide
BUN
Creatinine
Glucose
Calcium
Total Bilirubin
AST
ALT
Alkaline Phosphatase
12/25/23 12/25/23 12/25/23
03:15 03:15 03:15
WBC 8.7
Hgb Cancelled 9.4 L
Hct Cancelled 27.3 L
Plt Count 153 D
PT 17.1 H
INR 1.38
Sodium 142
Potassium 3.4 L
Chloride 107
Carbon Dioxide 26
BUN 22 H
Creatinine 0.5 L
Glucose 104 H
Calcium 8.3 L
Total Bilirubin 0.9
AST 114 H
ALT 79 H
Alkaline Phosphatase 88
Vital Signs:
Vital Signs
Temp Pulse Resp BP Pulse Ox
98.1 F 84 18 168/85 97
12/25/23 03:58 12/25/23 06:03 12/25/23 06:03 12/25/23 06:03 12/25/23 06:03
I&O
12/23/23 12/24/23 12/25/23
06:59 06:59 06:59
Intake Total 2270.4 / 2270.4 5030 / 5030
Output Total 350 / 350 1700 / 1700
Balance 1920.4 / 1920.4 3330 / 3330
Review of Systems
-
EENT: Reports No Symptoms Reported
Respiratory: Reports No Symptoms
Cardiac: Reports No Symptoms
Abdomen/GI: Reports Abdominal Pain
Genitourinary: Reports No Symptoms
Musculoskeletal: Reports No Symptoms
Skin: Reports No Symptoms
Neuro: Reports No Symptoms
Physical Exam
-
General: Well Developed and Well Nourished
HEENT: Normocephalic and Atraumatic
Respiratory: Clear to Auscultation
Cardiac: Regular Rhythm and S1/S2
GI: Soft and Other (mid abdominal pain. No guarding. No rebound )
Musculoskeletal: No Clubbing
Skin: Warm
Neuro: Awake, Alert, Oriented and AO x 3
[2023-12-25] MEDS: PROTONIX IV 40 MG IV ×2 (07:56→20:01)
[2023-12-25] MEDS: NSS (PRESERVATIVE FREE) 10 ML IV ×2 (07:56→20:01)
[2023-12-25] MEDS: DUPHALAC/CHRONULAC 20 GRAMS PO (07:56)
[2023-12-25] MEDS: SUBUTEX 8 MG SL (11:10)
--- NOTE | 2023-12-25 13:27 | CM ---
Patient seen at bedside with physician and residents. Guards also present. Pending - per physician. Patient for possible return to [facility] tomorrow. CM called to [facility] and they will need call to [phone], with update prior to discharge.
CM will continue to follow for discharge planning needs.
Plan; return to [facility]
[2023-12-25] MEDS: CATAPRES 0.1 MG PO (13:40)
--- NOTE | 2023-12-25 15:19 | PTCARENOTE ---
Assumed care of forensics Pt at shift change. Pt asleep in bed with 2 guards present. Initial COWS = 6; Pt requesting pain medication for lower abdominal pain ~ 8/10; Recently received Dilaudid 2 hours prior, unable to administer pain med until
~ 1130. Withdrawal symptoms worsened - Subutex 8mg administered. AAO x 3, restless. Pleasant. Elevated BP ~ 170's SBP. Clonidine added to MAR and administered. Will continue to monitor and assess.
[2023-12-25 18:16] LABS: Hepatitis B Surface Antigen Negative (Negative)
[2023-12-25 18:34] LABS: Hepatitis B Core Ab, Total Negative (Negative); Hepatitis B Surface Antibody Positive
[2023-12-25 18:35] LABS: Hepatitis A Antibody, Total Positive (Negative)
[2023-12-25] MEDS: ROCEPHIN 1000 MG IV (20:06)
[2023-12-25] MEDS: STERILE WATER FOR INJECTION 10 ML IV (20:07)
[2023-12-25 20:24] LABS: Hepatitis A IgM Antibody Negative (Negative)
[2023-12-25 20:31] LABS: AFP Male/Tumor Marker 11.7 ng/ml
--- NOTE | 2023-12-25 20:36 | PTCARENOTE ---
Vital signs downloaded at the beginning of shift 7p-7a. I can not verify vital signs downloaded prior to 1900 on 12/25/23.
[2023-12-26] VITALS (12 sets, daily range): BP systolic 144–174; BP diastolic 89–99; BMI 22.0
[2023-12-26] MEDS: DILAUDID 0.25 MG IV ×2 (00:32→07:58)
[2023-12-26] MEDS: NSS 1000 IV (04:12)
[2023-12-26 04:49] LABS: % Basophils 0.3 % (0-2); % Eosinophils 0.9 % (0-6); % Immature Granulocytes 0.5 % (0-0.5); % Lymphocytes 18.6 % (20.5-51.1); % Monocytes 6.7 % (1.7-9.3); Absolute Eosinophils 0.1 10^3/uL (0-0.7); Absolute Lymphocytes 1.2 10^3/uL (1.2-3.4); Absolute Monocytes 0.4 10^3/uL (0.1-0.6); Absolute Neutrophils 4.8 10^3/uL (1.4-6.5); Hematocrit 30.1 % (39.0-52.0); Hemoglobin 10.2 g/dL (13.0-18.0); Mean Corp Hgb Conc. 33.9 g/dL (33.0-37.0); Mean Corpuscular Hgb 31.3 pg (27.0-31.0); Mean Corpuscular Volume 92.3 fL (80.0-94.0); Mean Platelet Volume 10.2 fL (7.4-10.4); Nucleated Red Blood Cells % 0 % (-); Platelet Count 138 10^3/uL (130-400); Red Blood Cell Count 3.26 10^6/uL (4.70-6.10); Red Cell Dist. Width 15.8 % (11.5-14.5); White Blood Cell Count 6.6 10^3/uL (4.8-10.8)
[2023-12-26 05:24] LABS: ALT (SGPT) 74 U/L (0-50); AST (SGOT) 106 U/L (17-59); Albumin 2.9 g/dl (3.5-5.0); Alkaline Phosphatase 87 U/L (38-126); Blood Urea Nitrogen 13 mg/dl (9-20); Calcium 8.4 mg/dl (8.4-10.2); Carbon Dioxide 22 mmol/L (22-30); Chloride 107 mmol/L (98-107); Estimated Creatinine Clearance > 125 ml/min; Glucose 115 mg/dl (70-99); Potassium 3.6 mmol/L (3.5-5.1); Sodium 140 mmol/L (135-145); Total Protein 6.9 g/dl (6.3-8.2); eGFR > 60.00
--- NOTE | 2023-12-26 06:52 | W.PN.HOSP.TC ---
Addendum entered and electronically signed by Tony Dempsey MD 12/26/23 15:55:
I saw and evaluated the patient. I reviewed the resident�s note and agree with findings and plan as documented in the resident�s note.
Patient somewhat somnolent although waking up on verbal cue. Complains of mainly diffuse abdominal pain. No nausea or vomiting.
Coffee Ground Emesis---apprec GI--s/p EGD with small and superficial duodenal ulcers in bulb and Incidental small gastric AVM, treated with bipolar cautery--follow H&H--transfuse to keep HGB ~9 if needed--octreotide drip off--cont PPI
-Obstruction series negative yesterday
-Advance diet to low residue diet today
-Avoid giving further IV narcotics as patient going to [facility]. Started on Tylenol. Avoiding NSAID with peptic ulcer disease. Hydrocodone for severe pain.
Hx of Cirrhosis--cont rocephin for SBP proph--no significant varices noted
Opioid Use Disorder with Acute Withdrawal-
-patient was on clonidine taper protocol, will continue at discharge
-Last reported use was on Friday and present.
-Patient can be continued on buprenorphine if [facility] can provide
Essential HTN - uncontrolled
-Provide oral losartan, further dose escalation based on blood pressure response
Acute toxic encephalopathy
-Patient have imaging diagnosis of liver cirrhosis, provide empiric lactulose as patient is somnolent
-Patient also used cocaine and lack of stimulant can explain patient's somnolence, monitor
DVT proph: SCDs
Code Status: Full Code
Original Note:
Today's Communication/Plan
-
Losartan 25 mg was started to address his high blood pressure.
Assessment / Plan
Assessment / Plan
The patient is a 53 year old male who presented to ER evaluation for vomiting from the local retirement. EMS saw the vomitus and did confirm that it was coffee ground emesis. At he present to ER, the patient had withdrawal symptoms including anxiety,
tremors, and sweating. The patient has a PMH of polysubstance use, perforated diverticulitis and Hepatitis C. His abdominal CT showed mild hepatic cirrhosis. GI team did asses the patient and the patient had a GED yesterday showing few, small and
superficial duodenal ulcers in bulb and sweep without high risk stigmata but no GV or duodenal varices. Patient has a general abdominal discomfort for which he had a abdominal CT and Obstruct Series W/PA X-ray. The images did not show any acute
abnormality.
#Coffee Ground Emesis
-CT scan shows evidence of cirrhosis and esophageal varices
-EGD on 12/23:Few, small and superficial duodenal ulcers in bulb and sweep without high risk stigmata. Small, grade I EV that completely flattened with insufflation (thus no banding performed). No GV or duodenal varices. Incidental small gastric
AVM, treated with bipolar cautery
-Continue IV PPI BID
-Continue IV Ceftriaxone
-Trend Hgb with serial CBC: 12/22 hgb 10 and 12/23 Hgb 10.2 12/24 Hgb 9.4 12/25 10.2
-WBC 6.6 in normal limits
#Abdominal Pain
-Mid abdominal area is painful to palpate
-Most likely due his duodenal ulcer
- X ray: Obstruct Series W/PA was ordered yesterday: Ascites. Small bilateral pleural effusions with associated compressive atelectasis at both lung bases
-No vomiting
-Had bowel movements yesterday
-Tolerating clear liquid diet
-pain medication PRN
#HT Most likely Secondary
-Clonidine 0.1 mg transderm
-Losartan 25 mg was started
Hold if SBP<90
#Opioid Use Disorder
-Continue buprenorphine
-Monitor COWS
#Constipation
-Duphalac
DVT: SCDs
Anticipated Discharge: 24 - 48 hours
Subjective/Interval History
-
Date of Service: December 26, 2023
The patient was seen in his bed and started to tolerate his diet. He has some discomfort on his abdomen.
Objective Data
-
Labs:
Laboratory Results
12/26/23
04:21
WBC 6.6
Hgb 10.2 L
Hct 30.1 L
Plt Count 138
Sodium 140
Potassium 3.6
Chloride 107
Carbon Dioxide 22
BUN 13
Creatinine 0.5 L
Glucose 115 H
Calcium 8.4
Total Bilirubin 1.0
AST 106 H
ALT 74 H
Alkaline Phosphatase 87
Vital Signs:
Vital Signs
Temp Pulse Resp BP Pulse Ox
98.4 F 83 24 167/98 94
12/26/23 04:49 12/26/23 06:00 12/26/23 06:00 12/26/23 06:00 12/26/23 06:00
I&O
12/24/23 12/25/23 12/26/23
06:59 06:59 06:59
Intake Total 2270.4 / 2270.4 5030 / 5030 4140 / 4140
Output Total 350 / 350 1700 / 1700 2225 / 2225
Balance 1920.4 / 1920.4 3330 / 3330 1914 / 1914
Review of Systems
-
EENT: Reports No Symptoms Reported
Respiratory: Reports No Symptoms
Cardiac: Reports No Symptoms
Abdomen/GI: Reports Other (See HPI )
Genitourinary: Reports No Symptoms
Musculoskeletal: Reports No Symptoms
Skin: Reports No Symptoms
Neuro: Reports No Symptoms
Physical Exam
-
HEENT: Normocephalic and Atraumatic
Respiratory: Clear to Auscultation
Cardiac: Regular Rhythm and S1/S2
GI: Soft and Other (mid abdominal pain. No guarding. No rebound.)
Musculoskeletal: No Clubbing
Skin: Warm
Neuro: Awake, Alert, Oriented and AO x 3
[2023-12-26] MEDS: CATAPRES 0.1 MG PO (07:56)
[2023-12-26] MEDS: DUPHALAC/CHRONULAC 20 GRAMS PO (07:57)
[2023-12-26] MEDS: PROTONIX IV 40 MG IV ×2 (07:58→21:35)
[2023-12-26] MEDS: SUBUTEX 8 MG SL (07:59)
[2023-12-26] MEDS: NSS (PRESERVATIVE FREE) 10 ML IV ×2 (07:59→21:35)
--- NOTE | 2023-12-26 09:26 | CM ---
Patient seen at bedside with guards present in IMU. Patient sleeping at this time, nursing aware. CM will continue to follow for discharge planning needs.
Plan; return to [facility] when medically appropriate
[2023-12-26] MEDS: COZAAR 25 MG PO (12:45)
[2023-12-26] MEDS: NORCO 5/325 1 TABLET PO ×2 (17:50→21:50)
[2023-12-26] MEDS: ROCEPHIN 1000 MG IV (21:34)
[2023-12-26] MEDS: STERILE WATER FOR INJECTION 10 ML IV (21:34)
[2023-12-27] VITALS (8 sets, daily range): BP systolic 123–164; BP diastolic 88–94; BMI 21.9; BMI 22.2
[2023-12-27 06:14] LABS: Hematocrit 30.4 % (39.0-52.0); Hemoglobin 10.2 g/dL (13.0-18.0); Mean Corp Hgb Conc. 33.6 g/dL (33.0-37.0); Mean Corpuscular Hgb 30.1 pg (27.0-31.0); Mean Corpuscular Volume 89.7 fL (80.0-94.0); Mean Platelet Volume 10.6 fL (7.4-10.4); Platelet Count 137 10^3/uL (130-400); Red Blood Cell Count 3.39 10^6/uL (4.70-6.10); Red Cell Dist. Width 16.1 % (11.5-14.5); White Blood Cell Count 6.8 10^3/uL (4.8-10.8)
[2023-12-27 06:24] LABS: ALT (SGPT) 82 U/L (0-50); AST (SGOT) 101 U/L (17-59); Albumin 2.8 g/dl (3.5-5.0); Alkaline Phosphatase 105 U/L (38-126); Blood Urea Nitrogen 11 mg/dl (9-20); Calcium 8.4 mg/dl (8.4-10.2); Carbon Dioxide 26 mmol/L (22-30); Chloride 108 mmol/L (98-107); Estimated Creatinine Clearance > 125 ml/min; Glucose 94 mg/dl (70-99); Potassium 3.8 mmol/L (3.5-5.1); Sodium 140 mmol/L (135-145); Total Bilirubin 0.8 mg/dl (0.2-1.3); Total Protein 6.7 g/dl (6.3-8.2); eGFR > 60.00
[2023-12-27 06:57] LABS: INR 1.57; PT 18.6 Sec (11.4-14.6)
[2023-12-27] MEDS: CATAPRES 0.1 MG PO (07:48)
[2023-12-27] MEDS: NORCO 5/325 1 TABLET PO ×3 (07:48→20:24)
[2023-12-27] MEDS: COZAAR 25 MG PO ×2 (07:48→08:53)
[2023-12-27] MEDS: DUPHALAC/CHRONULAC 20 GRAMS PO (07:49)
[2023-12-27] MEDS: SUBUTEX 8 MG SL (07:49)
[2023-12-27] MEDS: NSS (PRESERVATIVE FREE) 10 ML IV (07:49)
[2023-12-27] MEDS: PROTONIX IV 40 MG IV (07:50)
[2023-12-27] MEDS: TYLENOL 500 MG PO (10:56)
--- NOTE | 2023-12-27 13:50 | W.PN.HOSP.TC ---
Today's Communication/Plan
-
US abd r/o ascites
[facility] consult for diagnostic/theraputic paracentesis if large enough ascites
continue abx
Assessment / Plan
Assessment / Plan
Upper GI bleed from PUD
Kimi hypertensive gastropathy
Grade I esophageal varices
-s/p EGD with small and superficial duodenal ulcers in bulb and Incidental small gastric AVM, treated with bipolar cautery
-transfuse to keep HGB ~9 if needed
-octreotide drip off, cont PPI
-Obstruction series negative yesterday
-Advance diet to low residue diet today
-Avoid giving further IV narcotics as patient going to nursing home. Started on Tylenol. Avoiding NSAID with peptic ulcer disease. Hydrocodone for severe pain.
Abdominal pain
-CT a/p at admission showing ascites
-US abd ordered, will need to be NPO
-[facility] consulted for paracentesis to r/o SBP
-Maintain on empiric Rocephin for now.
Hx of Cirrhosis
-no significant varices noted
Opioid Use Disorder with Acute Withdrawal-
-patient was on clonidine taper protocol, will continue at discharge
-Last reported use was on Friday/Friday
-Patient can be continued on buprenorphine if [facility]irm[facility] can provide
Essential HTN - uncontrolled
-changes losartan to Aldactone in morning with cirrhosis h/o
-Propranolol could be tried as well with mixed beta blockade, uses cocaine and selective beta jessica needs to be avoided.
Acute toxic encephalopathy - Improved
-given few doses of empiric lactulose
-also coming off coccaine use and could have some loss of energy/somnloence
DVT proph: SCDs
Code Status: Full Code
Anticipated Discharge: Within 24 hours
Subjective/Interval History
-
Date of Service: December 27, 2023
continues to complain abd pain
reported nausea/vomiting yesterday although able to tolerate diet
Objective Data
-
Labs:
Laboratory Results
12/27/23
05:43
WBC 6.8
Hgb 10.2 L
Hct 30.4 L
Plt Count 137
PT 18.6 H
INR 1.57
Sodium 140
Potassium 3.8
Chloride 108 H
Carbon Dioxide 26
BUN 11
Creatinine 0.5 L
Glucose 94
Calcium 8.4
Total Bilirubin 0.8
AST 101 H
ALT 82 H
Alkaline Phosphatase 105
Vital Signs:
Vital Signs
Temp Pulse Resp BP Pulse Ox
98 F 90 20 153/90 94
12/27/23 10:02 12/27/23 13:15 12/27/23 10:02 12/27/23 13:15 12/27/23 10:02
I&O
12/26/23 12/27/23 12/28/23
06:59 06:59 06:59
Intake Total 4140 / 4140 3020 / 3020
Output Total 2225 / 2225 3050 / 3050
Balance 191 / 1914 -30 / -30
Review of Systems
-
Respiratory: Reports No Symptoms
Cardiac: Reports No Symptoms
Abdomen/GI: Reports No Symptoms
Physical Exam
-
General: Cachectic
HEENT: Negative Oxygen
Respiratory: Clear to Auscultation
Cardiac: Regular Rhythm and S1/S2
GI: Soft, Tender and Distended
Skin: Warm
Neuro: Awake, Alert, Oriented and AO x 3
[2023-12-27] MEDS: STERILE WATER FOR INJECTION 10 ML IV (20:23)
[2023-12-27] MEDS: ROCEPHIN 1000 MG IV (20:23)
[2023-12-27] MEDS: PROTONIX 40 MG PO (20:23)
[2023-12-28 06:00] VITALS: BMI 22.2
[2023-12-28 07:25] VITALS: BP 138/78
[2023-12-28 08:13] LABS: INR 1.64; PT 19.2 Sec (11.4-14.6)
[2023-12-28] MEDS: SUBUTEX 8 MG SL (10:22)
[2023-12-28] MEDS: CATAPRES 0.1 MG PO (10:22)
[2023-12-28] MEDS: DUPHALAC/CHRONULAC 20 GRAMS PO (10:23)
[2023-12-28] MEDS: PROTONIX 40 MG PO ×2 (10:23→20:39)
[2023-12-28] MEDS: ALDACTONE 50 MG PO (10:23)
[2023-12-28] MEDS: TYLENOL 500 MG PO ×2 (10:24→20:50)
--- NOTE | 2023-12-28 12:42 | W.PN.HOSP.TC ---
Today's Communication/Plan
-
[facility] for paracentesis
continue current med/diet regimen
d/c to [facility] if paracentesis r/o SBP
Assessment / Plan
Assessment / Plan
Upper GI bleed from PUD
Kimi hypertensive gastropathy
Grade I esophageal varices
-s/p EGD with small and superficial duodenal ulcers in bulb and Incidental small gastric AVM, treated with bipolar cautery
-transfuse to keep HGB ~9 if needed
-octreotide drip off, cont PPI
-Obstruction series negative
-Maintain on tylenol and norco regimen while in hospital.
-Reports nausea but able to tolerate LR diet
Abdominal pain
-CT a/p at admission showing ascites
-US abd showing mod ascites today
-[facility] consulted for paracentesis to r/o SBP, clinically less likely as on rocephin
Hx of Cirrhosis
-no significant varices noted
Opioid Use Disorder with Acute Withdrawal-
-patient was on clonidine taper protocol, will continue at discharge
-Last reported use was on Friday/Friday
-Patient can be continued on buprenorphine if infirmary can provide
Essential HTN - uncontrolled
-changes losartan to Aldactone in morning with cirrhosis h/o
-Propranolol could be tried as well with mixed beta blockade, uses cocaine and selective beta jessica needs to be avoided.
Acute toxic encephalopathy - Improved
-given few doses of empiric lactulose
-also coming off cocaine use and could have some loss of energy/somnolence
DVT proph: SCDs
Code Status: Full Code
Difficult to get labs with poor vasculature with repeated IV use, as labs normal for last 48hrs, blood draw cancelled.
Anticipated Discharge: Within 24 hours
Subjective/Interval History
-
Date of Service: December 28, 2023
abd pain ongoing
some distention
reports nausea but able to tolerate diet
Objective Data
-
Labs:
Laboratory Results
12/28/23 12/28/23
06:00 06:38
WBC Cancelled
Hgb Cancelled
Hct Cancelled
Plt Count Cancelled
PT 19.2 H
INR 1.64
Sodium Cancelled
Potassium Cancelled
Chloride Cancelled
Carbon Dioxide Cancelled
BUN Cancelled
Creatinine Cancelled
Glucose Cancelled
Calcium Cancelled
Total Bilirubin Cancelled
AST Cancelled
ALT Cancelled
Alkaline Phosphatase Cancelled
Vital Signs:
Vital Signs
Temp Pulse Resp BP Pulse Ox
98.1 F 85 20 138/78 93
12/28/23 07:25 12/28/23 10:23 12/28/23 07:25 12/28/23 10:23 12/28/23 07:25
I&O
12/27/23 12/28/23 12/29/23
06:59 06:59 06:59
Intake Total 3020 / 3020 600 / 600
Output Total 3050 / 3050 975 / 975
Balance -30 / -30 -375 / -375
Review of Systems
-
Respiratory: Reports No Symptoms
Cardiac: Reports No Symptoms
Abdomen/GI: Reports Abdominal Pain and Nausea; Denies Vomiting
Physical Exam
-
General: Cachectic
HEENT: Negative Oxygen
Respiratory: Clear to Auscultation
Cardiac: Regular Rhythm and S1/S2
GI: Soft, Tender and Distended
Skin: Warm
Neuro: Awake, Alert, Oriented and AO x 3
[2023-12-28] MEDS: NORCO 5/325 1 TABLET PO ×2 (14:37→18:39)
[2023-12-28 14:45] VITALS: BP 155/90
[2023-12-28] MEDS: ROCEPHIN 1000 MG IV (20:40)
[2023-12-28] MEDS: STERILE WATER FOR INJECTION 10 ML IV (20:40)
[2023-12-28 23:00] VITALS: BP 147/84
[2023-12-28] MEDS: VENTOLIN NEBULES 1.25 MG INH (23:39)
--- NOTE | 2023-12-29 05:29 | W.PN.HOSP.TC ---
Addendum entered and electronically signed by Tony Dempsey MD 12/29/23 13:43:
I saw and evaluated the patient. I reviewed the resident�s note and agree with findings and plan as documented in the resident�s note.
Upper GI bleed from PUD
Kimi hypertensive gastropathy
Grade I esophageal varices
-s/p EGD with small and superficial duodenal ulcers in bulb and Incidental small gastric AVM, treated with bipolar cautery
-transfuse to keep HGB ~9 if needed
-octreotide drip off, cont PPI
-Obstruction series negative
-Maintain on tylenol and norco regimen while in hospital.
-Reports nausea but able to tolerate LR diet
Abdominal pain
-CT a/p at admission showing ascites
-US abd showing mod ascites today
-patient got 2.6L ascitic fluid out, no SBP
Hx of Cirrhosis
-no significant varices noted
Opioid Use Disorder with Acute Withdrawal-
-patient was on clonidine taper protocol, will continue at discharge
-Last reported use was on Friday/Friday
-Patient can be continued on buprenorphine if infirmary can provide
Essential HTN - uncontrolled
-changes losartan to Aldactone with cirrhosis h/o
-Propranolol could be tried as well with mixed beta blockade, uses cocaine and selective beta jessica needs to be avoided.
Acute toxic encephalopathy - Improved
-given few doses of empiric lactulose
-also coming off cocaine use and could have some loss of energy/somnolence
DVT proph: SCDs
Code Status: Full Code
[facility]
Original Note:
Today's Communication/Plan
-
[facility]s jail reported that [facility] can continue buprenorphine.
Patient is planning to be discharged today.
Assessment / Plan
Assessment / Plan
Impression: The patient is a 53 year old male who presented [facility]. EMS saw the vomitus and did confirm that it was coffee ground emesis. At he present to ER, the patient had withdrawal symptoms including
anxiety, tremors, and sweating. The patient has a PMH of polysubstance use, perforated diverticulitis and Hepatitis C. His abdominal CT showed mild hepatic cirrhosis. GI team did assess the patient and the patient had a GED on 12/23 showing few,
small and superficial duodenal ulcers in bulb and sweep without high risk stigmata but no GV or duodenal varices. The patient was continued on IV PPI BID for GI bleeding, and Rocephin for SBP prophylaxis. Patient complained a a general abdominal
discomfort during his hospitalization for which he had a abdominal CT and Obstruct Series W/PA X-ray, US abdomen.. The images did not show any acute abnormality but abdominal ascites was found. [facility] was consulted for paracentesis and it was done on
12/28.
Assessment/PLAN
#Upper GI bleed:
-From PUD- EGD: small and superficial duodenal ulcers in bulb and Incidental small gastric AVM, treated with bipolar cautery, Grade I esophageal varices, Mild portal hypertensive gastropathy
-Hgb Stabil since admission- no RBC transfusion needed.
-transfuse to keep HGB ~9 if needed
-cont PPI
#Abdominal pain
-CT a/p at admission showing ascites
-Obstruction series negative
-US abd showing mod ascites on 12/27
-Maintain on tylenol and norco regimen while in hospital.
-Reports nausea but able to tolerate LR diet
-[facility]AD consulted for paracentesis to r/o SBP, clinically less likely as on rocephin
-Successful ultrasound-guided paracentesis yielding 2650 mL of ascitic fluid on 12/28
#Hx of Cirrhosis
-No significant varices noted
#Opioid Use Disorder
-Last reported use was on Friday/Friday before admission
-Patient can be continued on buprenorphine if infirmary can provide
Essential HTN - uncontrolled
-Continue Aldactone
-Propranolol could be tried as well with mixed beta blockade, uses cocaine and selective beta jessica needs to be avoided.
Acute toxic encephalopathy
- Improved
-given few doses of empiric lactulose
-also coming off cocaine use and could have some loss of energy/somnolence
DVT proph: SCDs
Code Status: Full Code
.
Anticipated Discharge: Today
Subjective/Interval History
-
Date of Service: December 29, 2023
The patient feels less discomfort abdominal pain after paracentesis. 2650 mL of ascitic fluid was removed in this morning.
Objective Data
-
Vital Signs:
Vital Signs
Temp Pulse Resp BP Pulse Ox
98.2 F 71 20 147/84 91
12/28/23 23:00 12/28/23 23:44 12/28/23 23:44 12/28/23 23:00 12/28/23 23:44
I&O
12/27/23 12/28/23 12/29/23
06:59 06:59 06:59
Intake Total 3020 / 3020 600 / 600 960 / 960
Output Total 3050 / 3050 975 / 975 1800 / 1800
Balance -30 / -30 -375 / -375 -840 / -840
Review of Systems
-
EENT: Reports No Symptoms Reported
Respiratory: Reports No Symptoms
Cardiac: Reports No Symptoms
Abdomen/GI: Reports Other (See HPI )
Genitourinary: Reports No Symptoms
Musculoskeletal: Reports No Symptoms
Skin: Reports No Symptoms
Neuro: Reports No Symptoms
Physical Exam
-
General: Well Developed and Well Nourished
HEENT: Normocephalic and Atraumatic
Respiratory: Clear to Auscultation
Cardiac: Regular Rhythm and S1/S2
GI: Other (Mild abdominal pain. No rebound no guarding )
Musculoskeletal: No Clubbing
Skin: Warm
Neuro: Awake, Alert and Oriented
--- NOTE | 2023-12-29 05:44 | W.DCSUMMARY ---
Discharge Summary
Discharge Data
Date of Admission: 12/23/23
Date of Discharge: 12/29/23
-
Pending Results: No
Additional Pending Results:
Principal Discharge diagnosis: Upper GI bleed from PUD, Hx of Cirrhosis with ascites
Chronic Diseases: Hepatitis C with cirrhosis , OUD, HTN, PUD
Hospital Course : The patient is a 53 year old male who presented to ER evaluation for vomiting from the local [facility]. EMS saw the vomitus and did confirm that it was coffee ground emesis. At he present to ER, the patient had withdrawal symptoms
including anxiety, tremors, and sweating. The patient has a PMH of polysubstance use, perforated diverticulitis and Hepatitis C. His abdominal CT showed mild hepatic cirrhosis. GI team did asses the patient and the patient had a GED yesterday
showing few, small and superficial duodenal ulcers in bulb and sweep without high risk stigmata but no GV or duodenal varices. His treatment with GI bleeding was continued with IV PPI BID. Patient had a general abdominal discomfort for which he had
a abdominal CT and Obstruct Series W/PA X-ray. The images did not show any acute abnormality. His Abd US on 12/27 showed moderate ascites throughout the abdomen and pelvis. The [facility] was consulted for paracentesis and 2650 mL of ascitic fluid was
removed on 12/28.
Problem #1: Upper GI bleed from PUD: GI did assessment and patient had EGD. His treatment was continued on PPI IV BID per GI recommendation. He was prescribed 40 mg BID PPI for 6 weeks and 40 mg Once daily following.
Problem #2:Liver cirrhosis with abdominal ascites: IRAD removed 2650 mL of ascitic fluid on 12/28.
problem #3:OUD: The patient was started on buprenorphine treatment.
Problem #4: HTN: He was started on spironolactone due having cirrhosis with ascites co-comitant after he was tapered of clonidine.
Acute toxic encephalopathy#5 - Improved. He was given few doses of empiric lactulose and prescribed at discharge to continue.
Important imaging studies:
12/[address]:
IMPRESSION:
1. MILD HEPATIC CIRRHOSIS, moderate diffuse hepatic steatosis, and portal hypertension.
2. Small volume of abdominal and pelvic ascites.
3. Diffuse small bowel and colonic wall thickening and submucosal edema most suggestive of PORTAL HYPERTENSIVE ENTEROCOLOPATHY. An infectious enterocolitis is an alternative diagnostic possibility if there are signs/symptoms of infection.
4. Mild esophageal varices.
5. Mild splenomegaly.
6. Previous sigmoidectomy.
7. Fecal impaction in the rectum.
12/24 CR Obstruct Series W/pa Chest:
IMPRESSION:
Ascites.
Small bilateral pleural effusions with associated compressive atelectasis at both lung bases
US Abdomen 12/27:
IMPRESSION:
There is moderate ascites throughout the abdomen and pelvis
There is thickening of the gallbladder wall to 8 mm which may be seen normally in the presence of ascites
XA Paracentesis With Us Guide 12/28
IMPRESSION:
Successful ultrasound-guided paracentesis yielding 2650 mL of ascitic fluid.
Discharge Plan
-
Patient Disposition: Intermediate
Discharge Diagnosis/Procedures: PUD, Portal hypertensive gastropathy, Grade I esophageal varices, Cirrhosis with abdominal ascites, OUD, Polysubstance Use Disorder, HTN
Condition: Fair
Diet: 2 Gram Sodium
Activity: No restrictions
Driving Restrictions: As prior to admission
Bathing Restrictions: OK to Shower
Referrals:
[facility] [Family Provider] -
Babak Garcia DO [Active] - (return to GI office for noted changes of cirrhosis on CT and work up. Will need further testing for hepatitis C and consider eventual treatment )
Prescriptions:
New
spironolactone 50 mg Tablet
50 mg PO DAILY Qty: 30 0RF
lactulose 20 gram/30 mL Solution
20 g PO DAILY Qty: 1200 0RF
acetaminophen [Tylenol Extra Strength] 500 mg Tablet
500 mg PO Q8HPRN PRN (Reason: mod sev pain) Qty: 30 0RF
furosemide [Lasix] 20 mg tablet
20 mg PO DAILY Qty: 30 0RF
pantoprazole 40 mg tablet,delayed release (DR/EC)
See Rx Instructions .ROUTE .COMPLEX Qty: 60 0RF
Rx Instructions:
Take 1 Tablet twice daily for 6 weeks THEN
Take 1 tablet daily for maintenance
buprenorphine HCl 8 mg tablet, sublingual
8 mg sublingual DAILY Qty: 14 0RF
Discontinued
clonidine HCl 0.1 mg Tablet
0.1 mg PO .TAPER
Patient Comments:
12/23/23-12/26/23: 1 tab TID, 12/27/23-12/28/23: 1 tab BID. 12/29/23-12/30/23: 0.5 tab BID
ondansetron HCl 4 mg Tablet
4 mg PO Q8HPRN PRN (Reason: nausea)
loperamide [Anti-Diarrheal (loperamide)] 2 mg Tablet
2 mg PO TIDPRN PRN (Reason: diarrhea)
acetaminophen-codeine [Tylenol-Codeine #3] 300-30 mg Tablet
1 tab PO .TAPER
Patient Comments:
12/23/23-12/25/23: 2 tab TID, 12/26/23-12/27/23: 2 tab BID, 12/28/23-12/28-: 1 tab BID, 12/30/23-12/30/23: 1 tab HS
Discharge Orders:
Discharge Patient (As Directed); Ordered 12/29/23
Ordered By: Tony Dempsey
Discharge Date and Time
Discharge Date/Time: 12/29/23 11:34
Print Language: MALAY
[2023-12-29 06:00] VITALS: BMI 22.0
[2023-12-29 07:30] VITALS: BP 145/87
[2023-12-29 07:50] VITALS: BP 149/84; BP_SYST 77
[2023-12-29 08:28] VITALS: BP 145/87
[2023-12-29 09:30] VITALS: BP 139/84; BP_SYST 79
[2023-12-29 09:37] VITALS: BP 139/84
[2023-12-29 10:05] LABS: Body Fluid Mononuclear 77.5 %; Body Fluid Polymorphonuclear 22.5 %; Body Fluid WBC 80 /CUMM
[2023-12-29 10:07] LABS: Body Fluid Second Tech AMA
[2023-12-29] MEDS: CATAPRES 0.1 MG PO (10:18)
[2023-12-29] MEDS: DUPHALAC/CHRONULAC 20 GRAMS PO (10:19)
[2023-12-29] MEDS: ALDACTONE 50 MG PO (10:19)
[2023-12-29] MEDS: PROTONIX 40 MG PO (10:19)
[2023-12-29] MEDS: SUBUTEX 8 MG SL (10:19)
[2023-12-29 10:22] LABS: Body Fluid LDH < 90 U/L; Body Fluid Protein < 2.0 g/dl
--- NOTE | 2023-12-29 10:44 | CM ---
Patient seen at bedside with guards. CM called to [facility] to [facility]. Physician requested patient to return on 8mg of Bupsienosuphine. Nursing at [facility] indicated that they had the medication and would review with physician at [facility].
[facility] to arrange transport back to facility. CM will continue to follow for discharge planning needs.
Plan; Please call report to:
[2023-12-29 11:00] VITALS: BP 158/82
== END 2023-12-29 11:34 | DRG 377 ==
LOC: 3 WEST ACU 18:15
PROVIDERS: Internal Medicine; Nurse Practitioner Adult Health; Physician Assistant; Physician Assistant Medical; Radiology Diagnostic Radiology; Student in an Organized Health Care Education/Training Program; ADMITTING PHYSICIAN Hospitalist; ATTENDING PHYSICIAN Hospitalist; EMERGENCY PHYSICIAN Student in an Organized Health Care Education/Training Program; OTHER PHYSICIAN Student in an Organized Health Care Education/Training Program
PROC: 0DB68ZX Excision of Stomach, Via Natural or Artificial Opening Endoscopic, Diagnostic (ICD-10-PCS; 2023-12-24)
PROC: 0W3P8ZZ Control Bleeding in Gastrointestinal Tract, Via Natural or Artificial Opening Endoscopic (ICD-10-PCS; 2023-12-24)
PROC: 0DB78ZX Excision of Stomach, Pylorus, Via Natural or Artificial Opening Endoscopic, Diagnostic (ICD-10-PCS; 2023-12-24)
PROC: 0W9G3ZX Drainage of Peritoneal Cavity, Percutaneous Approach, Diagnostic (ICD-10-PCS; 2023-12-29)
DX: K31.811 Angiodysplasia of stomach and duodenum with bleeding (principal); G92.9 Unspecified toxic encephalopathy; F11.23 Opioid dependence with withdrawal; D68.9 Coagulation defect, unspecified; A09 Infectious gastroenteritis and colitis, unspecified; D62 Acute posthemorrhagic anemia; J98.11 Atelectasis; J90 Pleural effusion, not elsewhere classified; K76.6 Portal hypertension; R18.8 Other ascites; I85.10 Secondary esophageal varices without bleeding; I10 Essential (primary) hypertension; K26.9 Duodenal ulcer, unspecified as acute or chronic, without hemorrhage or perforation; E88.09 Other disorders of plasma-protein metabolism, not elsewhere classified; K74.60 Unspecified cirrhosis of liver; K76.0 Fatty (change of) liver, not elsewhere classified; K31.89 Other diseases of stomach and duodenum; F17.210 Nicotine dependence, cigarettes, uncomplicated; F41.9 Anxiety disorder, unspecified; B18.2 Chronic viral hepatitis C; K44.9 Diaphragmatic hernia without obstruction or gangrene; K56.41 Fecal impaction; R16.1 Splenomegaly, not elsewhere classified; Z87.19 Personal history of other diseases of the digestive system; Z90.49 Acquired absence of other specified parts of digestive tract
CPT/HCPCS: 88305; 49083; 74022; 74177; 76700; 80053; 80306; 80307; 82105; 82607; 82728; 82746; 83540; 83550; 83615; 83690; 83735; 84157; 84484; 85014; 85018; 85025; 85027; 85610; 85730; 86704; 86706; 86708; 86709; 86803; 86850; 86900; 86901; 87015; 87070; 87205; 87340; 88112; 88341; 88342; 89051; 93005; 94640; 96361; 96374; 96375; 99285; 99406; Q9967

== ENCOUNTER 2023-12-31 17:30 | Emergency (ER) | payer OTHER, SELFPAY ==
[2023-12-31 17:36] VITALS: BP 143/87
[2023-12-31 17:38] VITALS: BP 143/87
[2023-12-31 17:52] VITALS: BMI 21.0
--- NOTE | 2023-12-31 17:58 | ED.GENMED ---
History of Present Illness
General
Chief Complaint: Vomiting Blood
Time Seen by Provider: 12/31/23 17:37
History of Present Illness
History of Present Illness:
53-year-old male presents from [facility] due to coffee-ground emesis. Patient was admitted to this hospital just last week for the same complaint at which time he was found to have a gastric AVM that was not felt to be causing his
symptoms as well as multiple duodenal ulcers. He was started on twice daily pantoprazole so was discharged in stable condition. His symptoms restarted yesterday shortly after being discharged. Denies any melena. Does not take any blood thinners.
Also notes distention of his abdomen
Review of Systems
Review of Systems
Allergies reviewed?: Yes
All Other Systems: ROS reviewed and negative except as documented in HPI and ROS
Phy Exam
Physical Exam
Physical Exam:
GEN: Generally thin and underweight with protuberant abdomen
Eyes: PERRLA, EOMs intact, no scleral icterus
HENT: NCAT, oral mucosa moist
Lungs: CTAB, no wheezes, rales, rhonchi, normal chest wall excursion
Cardiac: RRR, no M/R/G, no peripheral edema. Radial pulses 2+ bilat
Abdomen: Protuberant abdomen, grossly nontender
Neuro: AO x 3, no focal deficits to BUE/BLE, normal sensation throughout
MSK: No gross deformity or ecchymosis. No edema. No digital clubbing
Skin: No rashes, petechiae. Normal color, no pallor or jaundice.
Psych: Calm, cooperative, proper hygiene
Course
Orders/Labs/Results
Orders:
Orders
12/31/23 18:02
Type+Screen Urgent
Complete Blood Count/With Diff Urgent
Comprehensive Metabolic Panel Urgent
Prothrombin Time Urgent
12/31/23 18:36
Pantoprazole [Protonix IV] 40 mg IV NOW STA
Sucralfate Suspension [Carafate Suspension] 1 gm PO NOW STA
Abnormal Lab Results
12/31/23
18:02
RBC 3.62 L 10^6/uL
(4.70-6.10)
Hgb 10.9 L g/dL
(13.0-18.0)
Hct 33.1 L %
(39.0-52.0)
MCHC 32.9 L g/dL
(33.0-37.0)
RDW 16.4 H %
(11.5-14.5)
MPV 10.7 H fL
(7.4-10.4)
Absolute Lymphs (auto) 1.1 L 10^3/uL
(1.2-3.4)
Lymphocytes % 20.4 L %
(20.5-51.1)
Monocytes % 10.2 H %
(1.7-9.3)
PT 15.3 H Sec
(11.4-14.6)
BUN 21 H mg/dl
(9-20)
Creatinine 0.6 L mg/dL
(0.7-1.3)
Glucose 101 H mg/dl
(70-99)
AST 132 H U/L
(17-59)
ALT 89 H U/L
(0-50)
Albumin 3.1 L g/dl
(3.5-5.0)
12/31/23 18:02
12/31/23 18:02
Vital Signs
Initial and Last Documented VS:
Initial Vital Signs
Temp Pulse Resp BP Pulse Ox
97.9 F 84 16 143/87 96
12/31/23 17:36 12/31/23 17:36 12/31/23 17:36 12/31/23 17:36 12/31/23 17:36
Last Documented Vital Signs
Temp Pulse Resp BP Pulse Ox
97.9 F 78 18 147/87 98
12/31/23 17:36 12/31/23 19:12 12/31/23 19:12 12/31/23 19:12 12/31/23 19:12
MDM/Problems Addressed
MDM/Problems Addressed:
Patient's labs are reassuring, his hemoglobin is even uptrending. I discussed with GI who advises we add Carafate, no indication for repeat EGD given stable and improving hemoglobin. Patient will be referred to interventional radiology as an
outpatient for therapeutic paracentesis
*Critical Care Note
Total Time (30-74mins, 75-104mins- exclusive of procedures): Not Applicable
ED Attending Note
-
Portions of this chart may have been created with voice recognition software.� Occasional wrong word or��sound alike� substitutions may have occurred due to the inherent limitations of voice recognition software.
Discharge Plan
Departure
Patient Disposition: Home (Routine Discharge)
Date of Disposition: 12/31/23
Time of Disposition: 19:00
Patient with high blood pressure during this ER visit?: No
Discharge Problem:
Duodenal ulcer disease, Cirrhosis of liver with ascites
Instructions: Peptic ulcers
Prescriptions:
New
sucralfate [Carafate] 1 gram tablet
1 g PO AC Qty: 90 0RF
No Action
spironolactone 50 mg Tablet
50 mg PO DAILY Qty: 30 0RF
lactulose 20 gram/30 mL Solution
20 g PO DAILY Qty: 1200 0RF
acetaminophen [Tylenol Extra Strength] 500 mg Tablet
500 mg PO Q8HPRN PRN (Reason: mod sev pain) Qty: 30 0RF
furosemide [Lasix] 20 mg tablet
20 mg PO DAILY Qty: 30 0RF
pantoprazole 40 mg tablet,delayed release (DR/EC)
See Rx Instructions .ROUTE .COMPLEX Qty: 60 0RF
Rx Instructions:
Take 1 Tablet twice daily for 6 weeks THEN
Take 1 tablet daily for maintenance
buprenorphine HCl 8 mg tablet, sublingual
8 mg sublingual DAILY Qty: 14 0RF
Referrals:
[facility] [Family Provider] -
Pedro Mercado MD [Active] -
Activity Restrictions/Additional Instructions:
Zhao will need carafate added to every meal
Please contact the interventional radiology department listed below to schedule him for a routine paracentesis. The attached ordered must accompany him to the procedure
This may need to be scheduled routinely for his abdominal fluid
Interventions
Interventions:
*Risk Screen - Suicide Last Done: 12/31/23 17:36
*General Assessment Last Done: 12/31/23 17:36
*Neglect/Abuse Screening Last Done: 12/31/23 17:36
ED- Fall Risk Assessment Last Done: 12/31/23 17:56
*ED COVID-19 Vaccine History Last Done: 12/31/23 17:36
*Nursing Disposition Last Done: 12/31/23 19:45
VU-Jpoimj-Ikoiphvwtx Assessment Last Done: 12/31/23 17:48
ED- Cardiac Assessment Last Done: 12/31/23 17:48
ED- Pulmonary Assessment Last Done: 12/31/23 17:48
Discharge Date and Time
Discharge Date/Time: 12/31/23 19:46
Print Language: J[place]
[2023-12-31 18:00] VITALS: BP 136/91
[2023-12-31 18:15] LABS: % Basophils 0.7 % (0-2); % Eosinophils 2.2 % (0-6); % Immature Granulocytes 0.4 % (0-0.5); % Lymphocytes 20.4 % (20.5-51.1); % Monocytes 10.2 % (1.7-9.3); % Neutrophils 66.1 % (42.2-75.2); Absolute Eosinophils 0.1 10^3/uL (0-0.7); Absolute Lymphocytes 1.1 10^3/uL (1.2-3.4); Absolute Monocytes 0.6 10^3/uL (0.1-0.6); Absolute Neutrophils 3.6 10^3/uL (1.4-6.5); Hematocrit 33.1 % (39.0-52.0); Hemoglobin 10.9 g/dL (13.0-18.0); Mean Corp Hgb Conc. 32.9 g/dL (33.0-37.0); Mean Corpuscular Hgb 30.1 pg (27.0-31.0); Mean Corpuscular Volume 91.4 fL (80.0-94.0); Mean Platelet Volume 10.7 fL (7.4-10.4); Nucleated Red Blood Cells % 0 % (-); Platelet Count 210 10^3/uL (130-400); Red Blood Cell Count 3.62 10^6/uL (4.70-6.10); Red Cell Dist. Width 16.4 % (11.5-14.5); White Blood Cell Count 5.4 10^3/uL (4.8-10.8)
[2023-12-31 18:19] LABS: INR 1.21; PT 15.3 Sec (11.4-14.6)
[2023-12-31 18:24] LABS: ALT (SGPT) 89 U/L (0-50); AST (SGOT) 132 U/L (17-59); Albumin 3.1 g/dl (3.5-5.0); Alkaline Phosphatase 106 U/L (38-126); Blood Urea Nitrogen 21 mg/dl (9-20); Carbon Dioxide 28 mmol/L (22-30); Chloride 105 mmol/L (98-107); Estimated Creatinine Clearance > 125 ml/min; Glucose 101 mg/dl (70-99); Potassium 4.1 mmol/L (3.5-5.1); Sodium 140 mmol/L (135-145); Total Bilirubin 0.9 mg/dl (0.2-1.3); Total Protein 7.4 g/dl (6.3-8.2); eGFR > 60.00
[2023-12-31 19:12] VITALS: BP 147/87
[2023-12-31] MEDS: CARAFATE SUSPENSION 1 GM PO (19:12)
[2023-12-31] MEDS: PROTONIX IV 40 MG IV (19:13)
== END 2023-12-31 19:46 | disposition home or self-care (01) ==
LOC: EMR 17:30
PROVIDERS: Physician Assistant; EMERGENCY PHYSICIAN Emergency Medicine
DX: K26.9 Duodenal ulcer, unspecified as acute or chronic, without hemorrhage or perforation (principal); K74.60 Unspecified cirrhosis of liver; R18.8 Other ascites
CPT/HCPCS: 99284; 96374; 80053; 85025; 85610; 86850; 86900; 86901

== ENCOUNTER 2024-01-03 07:30 | Emergency (ER) | payer OTHER, SELFPAY ==
[2024-01-03] VITALS (8 sets, daily range): BP systolic 130–151; BP diastolic 67–137; BMI 21.1
[2024-01-03 08:16] LABS: % Eosinophils 1.7 % (0-6); % Immature Granulocytes 0.2 % (0-0.5); % Lymphocytes 26.4 % (20.5-51.1); % Neutrophils 60.7 % (42.2-75.2); Absolute Eosinophils 0.1 10^3/uL (0-0.7); Absolute Lymphocytes 1.1 10^3/uL (1.2-3.4); Absolute Monocytes 0.4 10^3/uL (0.1-0.6); Absolute Neutrophils 2.4 10^3/uL (1.4-6.5); Hematocrit 31.3 % (39.0-52.0); Hemoglobin 10.3 g/dL (13.0-18.0); Mean Corp Hgb Conc. 32.9 g/dL (33.0-37.0); Mean Corpuscular Hgb 29.9 pg (27.0-31.0); Nucleated Red Blood Cells % 0 % (-); Platelet Count 144 10^3/uL (130-400); Red Blood Cell Count 3.44 10^6/uL (4.70-6.10); Red Cell Dist. Width 15.9 % (11.5-14.5)
[2024-01-03 08:31] LABS: INR 1.28; PT 15.8 Sec (11.4-14.6)
[2024-01-03 08:33] LABS: APTT 56.8 Sec (23.4-35.0)
[2024-01-03 08:45] LABS: Blood Urea Nitrogen 17 mg/dl (9-20); Calcium 8.9 mg/dl (8.4-10.2); Carbon Dioxide 30 mmol/L (22-30); Chloride 103 mmol/L (98-107); Estimated Creatinine Clearance > 125 ml/min; Glucose 91 mg/dl (70-99); Sodium 138 mmol/L (135-145); eGFR > 60.00
--- NOTE | 2024-01-03 09:05 | ED.GENMED ---
History of Present Illness
<Brooklyn Khoury PA-C - Last Filed: 01/03/24 14:47>
General
Chief Complaint: Abdominal Pain
Source: patient
Exam Limitations: none
Time Seen by Provider: 01/03/24 07:36
Nursing documentation reviewed up to this point in time: agreed with
History of Present Illness
History of Present Illness:
pt is a 53 y/o M with h/o hep c cirrhosis
incarcerated
here 12/24-12/28 for GI bleeding and had abdominal ascites which was treated with therapeutic para on 12/28
here with worsening distention causing pain
also weight gain about 8 pounds
pt has reported subjective sob with the fluid in his abdomen as well
no fever/chills
had coffee ground emesis while here and was given octreotide and ppi
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
he has nto had nay more coffee ground emesis but did vomit once yesterday
no black stool
no h/o SBP
Past History
<Brooklyn Khoury PA-C - Last Filed: 01/03/24 14:47>
Past History
ED Past Medical History: Other (hepatitis c, cirrhosis, GI bleeding, gastric AVM, esophageal varices)
Review of Systems
<Brooklyn Khoury PA-C - Last Filed: 01/03/24 14:47>
Review of Systems
Allergies reviewed?: Yes
All Other Systems: Not applicable
Phy Exam
<Brooklyn Khoury PA-C - Last Filed: 01/03/24 14:47>
Physical Exam
Physical Exam:
GENERAL: Alert , in no apparent distress
EYE: pupils equal and reactive
NECK: Supple
ENT: o/p clr, mmm.
CARDIAC: Regular rate and rhythm .
LUNGS: Clear breath sounds bilaterally, no acute respiratory distress, no wheezes/rales/rhonchi
ABDOMEN: Soft, without focal tenderness, no r/g, no cvat, normal bowel sounds
NEUROLOGICAL: Alert and oriented, no focal neuro deficits
SKIN: Warm and dry, skin intact.
MUSCULOSKELETAL: No edema, well perfused. neg princess's sign
PSYCH: Normal and appropriate interaction.
Course
<Brooklyn Khoury PA-C - Last Filed: 01/03/24 14:47>
Orders/Labs/Results
Orders:
Orders
01/03/24 07:53
Electrocardiogram (*1) Stat
Reason for Study: Other
Other Reason for Exam: GI Bleed
EKG- Treatment ONCE
IV Insert/Care/Rem.- Treatment PRN
01/03/24 08:01
Basic Metabolic Panel Urgent
Complete Blood Count/With Diff Urgent
PTT Urgent
Prothrombin Time Urgent
01/03/24 08:24
Consult Interventional Radiology [IRAD CONSULT] Urgent
Consulting Provider: Pedro Mercado
Was physician already notified: Yes
Reason for Consult/Procedure: paracentesis
Acknowledgement that appropriate orders are entered: Yes
01/03/24 09:19
Potassium Urgent
01/03/24 12:29
Body Fluid Albumin Urgent
Fluid Source: Peritoneal (Ascites)
Date Specimen was Collected: 01/03/24
Time Specimen was Collected: 12:30
Body Fluid Amylase Urgent
Fluid Source: Peritoneal (Ascites)
Date Specimen was Collected: 01/03/24
Time Specimen was Collected: 12:30
Body Fluid Cell Count Urgent
What is the Body Fluid: peritoneal fluid
Date Specimen was Collected: 01/03/24
Time Specimen was Collected: 12:30
Comment: post procedure
Body Fluid LDH Urgent
Fluid Source: Peritoneal (Ascites)
Date Specimen was Collected: 01/03/24
Time Specimen was Collected: 12:30
Body Fluid Protein Urgent
Fluid Source: Peritoneal (Ascites)
Date Specimen was Collected: 01/03/24
Time Specimen was Collected: 12:30
Fluid Culture with Gram Stain Urgent
JACOB Source: Peritoneal Fluid
Specimen Description:
Date Specimen was Collected: 01/03/24
Time Specimen was Collected: 12:30
Comment: Post Procedure
Abnormal Lab Results
01/03/24
08:01
WBC 4.0 L 10^3/uL
(4.8-10.8)
RBC 3.44 L 10^6/uL
(4.70-6.10)
Hgb 10.3 L g/dL
(13.0-18.0)
Hct 31.3 L %
(39.0-52.0)
MCHC 32.9 L g/dL
(33.0-37.0)
RDW 15.9 H %
(11.5-14.5)
MPV 11.0 H fL
(7.4-10.4)
Absolute Lymphs (auto) 1.1 L 10^3/uL
(1.2-3.4)
Monocytes % 10.0 H %
(1.7-9.3)
PT 15.8 H Sec
(11.4-14.6)
APTT 56.8 H Sec
(23.4-35.0)
Creatinine 0.5 L mg/dL
(0.7-1.3)
01/03/24 08:01
01/03/24 09:19
Vital Signs
Initial and Last Documented VS:
Initial Vital Signs
Temp Pulse Resp BP Pulse Ox
97.5 F 74 18 130/79 96
01/03/24 08:04 01/03/24 08:04 01/03/24 08:04 01/03/24 08:04 01/03/24 08:04
Last Documented Vital Signs
Temp Pulse Resp BP Pulse Ox
97.5 F 69 18 151/137 97
01/03/24 08:04 01/03/24 13:30 01/03/24 08:04 01/03/24 13:00 01/03/24 13:30
<Daniel Spann DO - Last Filed: 01/03/24 09:18>
Orders/Labs/Results
Orders:
Orders
01/03/24 07:53
Electrocardiogram (*1) Stat
Reason for Study: Other
Other Reason for Exam: GI Bleed
EKG- Treatment ONCE
IV Insert/Care/Rem.- Treatment PRN
01/03/24 08:01
Basic Metabolic Panel Urgent
Complete Blood Count/With Diff Urgent
PTT Urgent
Prothrombin Time Urgent
01/03/24 08:24
Consult Interventional Radiology [IRAD CONSULT] Urgent
Consulting Provider: Pedro Mercado
Was physician already notified: Yes
Reason for Consult/Procedure: paracentesis
Acknowledgement that appropriate orders are entered: Yes
01/03/24 09:19
Potassium Urgent
01/03/24 12:29
Body Fluid Albumin Urgent
Fluid Source: Peritoneal (Ascites)
Date Specimen was Collected: 01/03/24
Time Specimen was Collected: 12:30
Body Fluid Amylase Urgent
Fluid Source: Peritoneal (Ascites)
Date Specimen was Collected: 01/03/24
Time Specimen was Collected: 12:30
Body Fluid Cell Count Urgent
What is the Body Fluid: peritoneal fluid
Date Specimen was Collected: 01/03/24
Time Specimen was Collected: 12:30
Comment: post procedure
Body Fluid LDH Urgent
Fluid Source: Peritoneal (Ascites)
Date Specimen was Collected: 01/03/24
Time Specimen was Collected: 12:30
Body Fluid Protein Urgent
Fluid Source: Peritoneal (Ascites)
Date Specimen was Collected: 01/03/24
Time Specimen was Collected: 12:30
Fluid Culture with Gram Stain Urgent
JACOB Source: Peritoneal Fluid
Specimen Description:
Date Specimen was Collected: 01/03/24
Time Specimen was Collected: 12:30
Comment: Post Procedure
Abnormal Lab Results
01/03/24
08:01
WBC 4.0 L 10^3/uL
(4.8-10.8)
RBC 3.44 L 10^6/uL
(4.70-6.10)
Hgb 10.3 L g/dL
(13.0-18.0)
Hct 31.3 L %
(39.0-52.0)
MCHC 32.9 L g/dL
(33.0-37.0)
RDW 15.9 H %
(11.5-14.5)
MPV 11.0 H fL
(7.4-10.4)
Absolute Lymphs (auto) 1.1 L 10^3/uL
(1.2-3.4)
Monocytes % 10.0 H %
(1.7-9.3)
PT 15.8 H Sec
(11.4-14.6)
APTT 56.8 H Sec
(23.4-35.0)
Creatinine 0.5 L mg/dL
(0.7-1.3)
01/03/24 08:01
01/03/24 09:19
Vital Signs
Initial and Last Documented VS:
Initial Vital Signs
Temp Pulse Resp BP Pulse Ox
97.5 F 74 18 130/79 96
01/03/24 08:04 01/03/24 08:04 01/03/24 08:04 01/03/24 08:04 01/03/24 08:04
Last Documented Vital Signs
Temp Pulse Resp BP Pulse Ox
97.5 F 69 18 151/137 97
01/03/24 08:04 01/03/24 13:30 01/03/24 08:04 01/03/24 13:00 01/03/24 13:30
<Brooklyn Khoury PA-C - Last Filed: 01/03/24 14:47>
MDM/Problems Addressed
Differential Diagnosis Includes:
ascites, sbp
MDM/Problems Addressed:
53 y/o M
cirrhosis
ascites
abd pain with distention
no fever
on exam low suspicion for SBP
was here a few days ago and had some ascites but not enough for urgent para
since, pt has had more fluid accumulation
he also has some pain
no fever/well papearing
ascites but not severe
mild tenderness but low suspicion for SBP
wbc normal
hg stable
IR consutled
performed para, 800 cc fluid
fluid analaysis is not c/w SBP
return to alf
<TANYA Aguirre Last Filed: 01/03/24 14:47>
*Critical Care Note
Total Time (30-74mins, 75-104mins- exclusive of procedures): Not Applicable
ED Attending Note
<TANYA Aguirre Last Filed: 01/03/24 14:47>
-
Portions of this chart may have been created with voice recognition software.� Occasional wrong word or��sound alike� substitutions may have occurred due to the inherent limitations of voice recognition software.
<Daniel Spann DO - Last Filed: 01/03/24 09:18>
ED Attending Note
Patient seen and examined by attending physician: Yes
I performed the substantive portion of visit, reviewed & personally made and approve the management plan that is documented in note by myself or LACEY.: Yes
Discharge Plan
Departure
Patient Disposition: [facility]
Date of Disposition: 01/03/24
Time of Disposition: 13:52
Patient with high blood pressure during this ER visit?: No
Condition: Fair
Covid-19: Not Applicable
Discharge Problem:
Ascites
Instructions: Fluid in the Belly (Ascites) (DC), Abdominal Paracentesis (DC)
Prescriptions:
No Action
spironolactone 50 mg Tablet
50 mg PO DAILY Qty: 30 0RF
lactulose 20 gram/30 mL Solution
20 g PO DAILY Qty: 1200 0RF
acetaminophen [Tylenol Extra Strength] 500 mg Tablet
500 mg PO Q8HPRN PRN (Reason: mod sev pain) Qty: 30 0RF
furosemide [Lasix] 20 mg tablet
20 mg PO DAILY Qty: 30 0RF
pantoprazole 40 mg tablet,delayed release (DR/EC)
See Rx Instructions .ROUTE .COMPLEX Qty: 60 0RF
Rx Instructions:
Take 1 Tablet twice daily for 6 weeks THEN
Take 1 tablet daily for maintenance
buprenorphine HCl 8 mg tablet, sublingual
8 mg sublingual DAILY Qty: 14 0RF
sucralfate [Carafate] 1 gram tablet
1 g PO AC Qty: 90 0RF
Referrals:
[facility] [Family Provider] -
Activity Restrictions/Additional Instructions:
Zhao had fluid drained off of his abdomen. We tested it for infection and he had no findings concerning for that. The interventional radiology department has apparently tried to coordinate having this done routinely as an outpatient
please follow up with them.
return for any concerns, fever, severe pain, etc.
[phone] interventional radiology
it would be better to have this managed regularly rather than use the emergency department if possible
Interventions
Interventions:
*Risk Screen - Suicide Last Done: 01/03/24 07:52
*General Assessment Last Done: 01/03/24 07:52
*Neglect/Abuse Screening Last Done: 01/03/24 07:52
ED- Fall Risk Assessment Last Done: 01/03/24 07:52
*ED COVID-19 Vaccine History Last Done: 01/03/24 07:52
*Nursing Disposition Last Done: 01/03/24 14:01
FM-Wswtcx-Lxwfwovjsh Assessment Last Done: 01/03/24 07:52
Discharge Date and Time
Discharge Date/Time: 01/03/24 14:03
Print Language: URUGUAYAN
[2024-01-03 09:43] LABS: Potassium 4.2 mmol/L (3.5-5.1)
[2024-01-03 13:40] LABS: Body Fluid Mononuclear 94.6 %; Body Fluid Polymorphonuclear 5.4 %; Body Fluid WBC 112 /CUMM
[2024-01-03 13:41] LABS: Body Fluid Second Tech CS
[2024-01-03 13:42] LABS: Body Fluid Albumin < 1.0 g/dl; Body Fluid Amylase 147 U/L; Body Fluid LDH < 90 U/L; Body Fluid Protein < 2.0 g/dl
== END 2024-01-03 14:03 ==
LOC: EMR 07:30
PROVIDERS: Physician Assistant; CONSULT PHYSICIAN Radiology Vascular & Interventional Radiology; EMERGENCY PHYSICIAN Emergency Medicine
DX: R18.8 Other ascites (principal)
CPT/HCPCS: 99284; 49083; 80048; 82042; 82150; 83615; 84132; 84157; 85025; 85610; 85730; 87015; 87070; 87205; 89051; 93005

== ENCOUNTER 2024-01-04 21:23 | Emergency (ER) | payer OTHER, SELFPAY ==
[2024-01-04 21:27] VITALS: BP 133/91; BMI 21.3
--- NOTE | 2024-01-04 21:48 | ED.GENMED ---
History of Present Illness
<JOSE Christianson - Last Filed: 01/05/24 02:10>
General
Chief Complaint: Abdominal Pain
Source: patient
Exam Limitations: none
Time Seen by Provider: 01/04/24 21:28
History of Present Illness
History of Present Illness:
This is a 53 year old male that is brought in from the [facility] with left sided abd pain. Patient states that the pain started today. Patient has a Paracentesis done on Jan 02. States that he is SOB due to the pain. States that he has vomited and had
diarrhea. States that he is also dizzy. Denies any fever, chills, chest pain, nausea, headache, urinary burning.
Past History
<JOSE Christianson - Last Filed: 01/05/24 02:10>
Past History
ED Past Medical History: Asthma and Other (hepatitis c, cirrhosis, GI bleeding, gastric AVM, esophageal varices, Diverticulitis, Ulcers, )
ED Past Surgical History: Appendectomy, Bowel resection and Orthopedic (Ankle surgery)
Social History
Tobacco: Former smoker
Alcohol: None
Personal: Single
Living: [facility]
Review of Systems
<JOSE Christianson - Last Filed: 01/05/24 02:10>
Review of Systems
All Other Systems: ROS reviewed and negative except as documented in HPI and ROS
Constitutional: Reports no symptoms; Denies fever or chills
EENT: Reports no symptoms
Respiratory: Reports trouble breathing (with the pain); Denies cough
Cardiac: Denies chest pain
ABD/GI: Reports abdominal pain, vomiting and diarrhea; Denies nausea
: Reports no symptoms; Denies dysuria, frequency or urgency
Musculoskeletal: Reports no symptoms
Skin: Reports no symptoms
Neurological: Reports dizzy; Denies headache
Psychiatric: Reports no symptoms
Phy Exam
<JOSE Christianson - Last Filed: 01/05/24 02:10>
General Physical Exam
General Presentation: mild distress
General age: appears stated age
General Skin: warm and dry
General Habitus: normal
General Mental: alert
General Hydration: appears well hydrated
ENT Exam
ENT Exam: TM's normal, pharynx normal and neck supple
Eye Exam
Eye Exam: EOMI
Cardiovascular Exam
Cardiovascular Exam: regular rate/rhythm, no edema and normal peripheral pulses
Pulmonary Exam
Pulmonary Exam: no respiratory distress, no rales, chest non tender, no crackles, no rhonchi, no wheezing, no cough and decreased breath sounds (at bases)
Gastrointestinal Exam
Gastrointestinal Exam: normal bowel sounds, soft, no organomegaly, no pulsatile mass, non distended and tender (LLQ tenderness with palpation)
Musculoskeletal Exam
Musculoskeletal Exam: full ROM and no edema
Skin Exam
Skin Exam: normal color, warm/dry, no rash and no petechia
Psychiatric Exam
Psychiatric Exam: normal mood/affect
Course
<JOSE Christianson - Last Filed: 01/05/24 02:10>
Orders/Labs/Results
Orders:
Orders
01/04/24 21:24
IV Insert/Care/Rem.- Treatment PRN
01/04/24 21:36
Ammonia Urgent
Basic Metabolic Panel Urgent
Complete Blood Count/With Diff Urgent
Lipase Urgent
01/04/24 21:48
Ketorolac [Toradol] 30 mg IV NOW STA
01/04/24 21:52
Iohexol [Omnipaque] See Protocol PO NOW STA
01/04/24 21:53
0.9% Sodium Chloride 500 ml [Nss] 500 ml IV BOLUS
01/05/24 00:00
CT Abd/pel W Iv And Oral Contr Urgent
Reason For Exam: Left sided abd pain
01/05/24 01:20
CR Chest - 2 Views Urgent
Comment:
Reason For Exam: SOB
Abnormal Lab Results
01/04/24
21:36
RBC 3.31 L 10^6/uL
(4.70-6.10)
Hgb 10.0 L g/dL
(13.0-18.0)
Hct 30.5 L %
(39.0-52.0)
MCHC 32.8 L g/dL
(33.0-37.0)
RDW 16.1 H %
(11.5-14.5)
MPV 11.4 H fL
(7.4-10.4)
BUN 21 H mg/dl
(9-20)
Creatinine 0.6 L mg/dL
(0.7-1.3)
Glucose 139 H mg/dl
(70-99)
Ammonia < 9 L umol/L
(9-30)
Lipase 476 H U/L
(23-300)
01/04/24 21:36
01/04/24 21:36
H/H low but consistent with prior labs, Very slight Dehydration. hyperglycemia. Ammonia <9.0, Lipase mildly elevated.
Vital Signs
Initial and Last Documented VS:
Initial Vital Signs
Temp Pulse Resp BP Pulse Ox
98.3 F 94 16 133/91 96
01/04/24 21:27 01/04/24 21:27 01/04/24 21:27 01/04/24 21:27 01/04/24 21:27
Last Documented Vital Signs
Temp Pulse Resp BP Pulse Ox
98.3 F 78 16 133/81 96
01/04/24 21:27 01/04/24 23:45 01/04/24 21:27 01/04/24 23:00 01/04/24 23:45
<Brooklyn Khoury PA-C - Last Filed: 01/05/24 09:32>
Orders/Labs/Results
Orders:
Orders
01/04/24 21:24
IV Insert/Care/Rem.- Treatment PRN
01/04/24 21:36
Ammonia Urgent
Basic Metabolic Panel Urgent
Complete Blood Count/With Diff Urgent
Lipase Urgent
01/04/24 21:48
Ketorolac [Toradol] 30 mg IV NOW STA
01/04/24 21:52
Iohexol [Omnipaque] See Protocol PO NOW STA
01/04/24 21:53
0.9% Sodium Chloride 500 ml [Nss] 500 ml IV BOLUS
01/05/24 00:00
CT Abd/pel W Iv And Oral Contr Urgent
Reason For Exam: Left sided abd pain
01/05/24 01:20
CR Chest - 2 Views Urgent
Comment:
Reason For Exam: SOB
Abnormal Lab Results
01/04/24
21:36
RBC 3.31 L 10^6/uL
(4.70-6.10)
Hgb 10.0 L g/dL
(13.0-18.0)
Hct 30.5 L %
(39.0-52.0)
MCHC 32.8 L g/dL
(33.0-37.0)
RDW 16.1 H %
(11.5-14.5)
MPV 11.4 H fL
(7.4-10.4)
BUN 21 H mg/dl
(9-20)
Creatinine 0.6 L mg/dL
(0.7-1.3)
Glucose 139 H mg/dl
(70-99)
Ammonia < 9 L umol/L
(9-30)
Lipase 476 H U/L
(23-300)
01/04/24 21:36
01/04/24 21:36
Vital Signs
Initial and Last Documented VS:
Initial Vital Signs
Temp Pulse Resp BP Pulse Ox
98.3 F 94 16 133/91 96
01/04/24 21:27 01/04/24 21:27 01/04/24 21:27 01/04/24 21:27 01/04/24 21:27
Last Documented Vital Signs
Temp Pulse Resp BP Pulse Ox
98.3 F 78 16 133/81 96
01/04/24 21:27 01/04/24 23:45 01/04/24 21:27 01/04/24 23:00 01/04/24 23:45
<JOSE Christianson - Last Filed: 01/05/24 02:10>
MDM/Problems Addressed
Differential Diagnosis Includes:
Diverticulitis,
MDM/Problems Addressed:
This is a 53 year old male that comes in with c/o left sided abd pain. States that this started today and that he had a Paracentesis done on the .
Will check labs. CT scan, IV fluids and medicate for pain.
Back into see patient. Explained that his blood work shows slight Dehydration and that his CT scan is negative for any acute process. Chest x-ray is negative for any acute process. Patient has not fever, cough or WBC count. Will discharge back to
[facility].
Chronic conditions affecting care:
Diverticulitis,
Acute Exacerbation and/or Progression of Chronic Illness:
Diverticulitis
<JOSE Christianson - Last Filed: 01/05/24 02:10>
*Radiology
Radiology exam reviewed: preliminary read by ED provider (Chest- Negative for active disease. ) and radiology read reviewed (CT night hawk- cirrhosis with prominent ascites and portal hypertension. NO calcified gallstones. No bowel obstruction or
bowel wall thickening. No obstructive urolithiasis. Bibasilar and right middle lobe consolidations, possibly representing atelectasis although correlate for Superimposed Infectio)
*Pulse Oximetry
Patient hypoxic: no
*EKG
Interpreted by ED Provider?: NA
Rate: EKG- N/A
*Air Bag Stripper Interpretation
Rate: normal
Heart Rate: 88
Rhythm: sinus
*Critical Care Note
Total Time (30-74mins, 75-104mins- exclusive of procedures): Not Applicable
<Brooklyn Khoury PA-C - Last Filed: 01/05/24 09:32>
Update Note
Update Note:
01/05/2024 0919 AM I received a text message from radiology regarding patient's chest x-ray showing a be slightly progressed right basilar atelectasis versus infiltrate. I spoke with the nurse Rebeca at the [facility] and
recommended that the patient be treated if he is having cough and fever symptoms but that if he has no cough or respiratory complaints that maybe they repeat the x-ray in a couple of days. She was going to get the faxed copy of the report to the PA
to discuss.
ED Attending Note
<JOSE Christianson - Last Filed: 01/05/24 02:10>
-
Portions of this chart may have been created with voice recognition software.� Occasional wrong word or��sound alike� substitutions may have occurred due to the inherent limitations of voice recognition software.
Discharge Plan
Departure
Patient Disposition: [facility]
Date of Disposition: 01/05/24
Time of Disposition: 02:07
Patient with high blood pressure during this ER visit?: Yes
Condition: Good
Covid-19: Not Applicable
Discharge Problem:
Abdominal pain
Instructions: Abdominal Pain, BLOOD PRESSURE
Prescriptions:
No Action
lactulose 20 gram/30 mL Solution
20 g PO DAILY Qty: 1200 0RF
pantoprazole 40 mg tablet,delayed release (DR/EC)
See Rx Instructions .ROUTE .COMPLEX Qty: 60 0RF
Rx Instructions:
Take 1 Tablet twice daily for 6 weeks THEN
Take 1 tablet daily for maintenance
buprenorphine HCl 8 mg tablet, sublingual
8 mg sublingual DAILY Qty: 14 0RF
sucralfate [Carafate] 1 gram tablet
1 g PO AC Qty: 90 0RF
sumatriptan succinate [Imitrex] 25 mg Tablet
25 mg PO PRN PRN (Reason: headache)
ondansetron HCl [Zofran] 4 mg Tablet
4 mg PO Q8H PRN (Reason: nausea)
albuterol 90 mcg/actuation Aerosol
1 mcg INHALATION PRN PRN (Reason: sob)
spironolactone 50 mg tablet
25 mg PO DAILY
Referrals:
[facility] [Family Provider] - Follow up in 2-3 days
Activity Restrictions/Additional Instructions:
As discussed, your blood work shows your Hgb is low but this is consistent with prior labs. You are also slightly dehydration. Your CT scan is negative for any acute process, there is no bowel wall thickening, obstruction or acute disease. Please
follow up with the Doctor at the [facility] for further evaluation. Ibuprofen as needed for any discomfort. IF YOU HAVE FEVER, INCREASED OR CHANGING PAIN, OR ANY OTHER CONCERNS PLEASE RETURN TO THE EMERGENCY ROOM. PATIENT IS CLEARED FOR INCARCERATION.
Interventions
Interventions:
*Risk Screen - Suicide Last Done: 01/04/24 21:27
*General Assessment Last Done: 01/04/24 21:27
*Neglect/Abuse Screening Last Done: 01/04/24 21:27
ED- Fall Risk Assessment Last Done: 01/04/24 23:43
*ED COVID-19 Vaccine History Last Done: 01/04/24 21:27
*Nursing Disposition Last Done: 01/05/24 02:22
QP-Vaocda-Ooaesizuzl Assessment Last Done: 01/04/24 23:43
Discharge Date and Time
Discharge Date/Time: 01/05/24 02:23
Print Language: MALAY
[2024-01-04 21:55] LABS: % Basophils 0.5 % (0-2); % Eosinophils 1.4 % (0-6); % Immature Granulocytes 0.3 % (0-0.5); % Lymphocytes 23.2 % (20.5-51.1); % Monocytes 7.7 % (1.7-9.3); % Neutrophils 66.9 % (42.2-75.2); Absolute Eosinophils 0.1 10^3/uL (0-0.7); Absolute Lymphocytes 1.3 10^3/uL (1.2-3.4); Absolute Monocytes 0.4 10^3/uL (0.1-0.6); Absolute Neutrophils 3.8 10^3/uL (1.4-6.5); Hematocrit 30.5 % (39.0-52.0); Mean Corp Hgb Conc. 32.8 g/dL (33.0-37.0); Mean Corpuscular Hgb 30.2 pg (27.0-31.0); Mean Corpuscular Volume 92.1 fL (80.0-94.0); Nucleated Red Blood Cells % 0 % (-); Red Blood Cell Count 3.31 10^6/uL (4.70-6.10); Red Cell Dist. Width 16.1 % (11.5-14.5); White Blood Cell Count 5.7 10^3/uL (4.8-10.8)
[2024-01-04 21:59] LABS: Ammonia < 9 umol/L (9-30)
[2024-01-04 22:00] VITALS: BP 128/82
[2024-01-04 22:01] LABS: Blood Urea Nitrogen 21 mg/dl (9-20); Calcium 8.6 mg/dl (8.4-10.2); Carbon Dioxide 27 mmol/L (22-30); Chloride 103 mmol/L (98-107); Estimated Creatinine Clearance > 125 ml/min; Glucose 139 mg/dl (70-99); Lipase 476 U/L (23-300); Sodium 138 mmol/L (135-145); eGFR > 60.00
[2024-01-04] MEDS: TORADOL 30 MG IV (22:02)
[2024-01-04] MEDS: OMNIPAQUE 50 ML PO (22:02)
[2024-01-04] MEDS: NSS 500 IV (22:04)
[2024-01-04 22:07] LABS: Mean Platelet Volume 11.4 fL (7.4-10.4); Platelet Count 149 10^3/uL (130-400)
[2024-01-04 23:00] VITALS: BP 133/81
--- NOTE | 2024-01-04 23:40 | EDRN ---
Patient tolerating oral contrast, provided a urinal as well, he asked about more pain meds, Bambi [employer] aware, no further orders given.
== END 2024-01-05 02:23 ==
LOC: EMR 21:23
PROVIDERS: EMERGENCY PHYSICIAN Student in an Organized Health Care Education/Training Program
DX: R10.30 Lower abdominal pain, unspecified (principal); R06.02 Shortness of breath; J45.909 Unspecified asthma, uncomplicated; K74.60 Unspecified cirrhosis of liver; Z87.891 Personal history of nicotine dependence; Z90.49 Acquired absence of other specified parts of digestive tract
CPT/HCPCS: 99283; 71046; 74177; 80048; 82140; 83690; 85025; Q9967

== ENCOUNTER 2024-01-13 13:16 | Emergency (ER) | payer OTHER, SELFPAY ==
[2024-01-13 13:30] VITALS: BP 135/97
[2024-01-13 13:42] VITALS: BMI 21.5
--- NOTE | 2024-01-13 13:57 | ED.GENMED ---
History of Present Illness
<Yaakov Hanks PA-C - Last Filed: 01/13/24 14:01>
General
Chief Complaint: Abdominal Symptoms
Source: patient
Exam Limitations: none
Time Seen by Provider: 01/13/24 13:50
History of Present Illness
History of Present Illness:
53-year-old male presents from [facility] with increased abdominal distention and trouble breathing secondary to the distention. He has a history of cirrhosis. He has been here before for paracentesis. He feels he needs another tap. He
states he usually gets his abdomen drained every 2 weeks. No fever. No cough. No chest pain. No vomiting. No other complaints.
Past History
<Yaakov Hanks PA-C - Last Filed: 01/13/24 14:01>
Past History
ED Past Medical History: Asthma and Other
ED Past Surgical History: Appendectomy, Bowel resection and Orthopedic (Ankle surgery)
Social History
Tobacco: Former smoker
Alcohol: None
Personal: Single
Living: care home
Phy Exam
<Yaakov Hanks PA-C - Last Filed: 01/13/24 14:01>
Physical Exam
Physical Exam:
General: Somewhat cachectic appearing male slight increased work of breathing
HEENT: Normocephalic atraumatic
Heart: Regular rate and rhythm no murmurs
Lungs are clear no wheeze
Abdomen distended but no guarding or rebound. Normal bowel sounds
Extremities: No cyanosis or edema
Course
<Yaakov Hanks PA-C - Last Filed: 01/13/24 14:01>
Orders/Labs/Results
Orders:
Orders
01/13/24
US Abdomen Limited Urgent
Reason For Exam: PERFORMED IN [facility]
01/13/24 14:01
Basic Metabolic Panel Urgent
Complete Blood Count/With Diff Urgent
01/13/24 14:12
Consult Interventional Radiology [[facility] CONSULT] Urgent
Consulting Provider: Cristino Lazcano
Was physician already notified: Yes
Reason for Consult/Procedure: paracentesis
Acknowledgement that appropriate orders are entered: Yes
Cell Count (Body Fluid) [Body Fluid Cell Count] Urgent
What is the Body Fluid: ascites
Fluid Culture with Gram Stain Urgent
JACOB Source: Peritoneal Fluid
Specimen Description:
01/13/24 14:51
CT Abd/pelvis W Iv Cont Urgent
Comment:
Reason For Exam: abdominal pain
01/13/24 15:58
Ammonia Urgent
Comprehensive Metabolic Panel Urgent
01/13/24 17:11
Dicyclomine HCl [Bentyl] 20 mg IM NOW STA
Ketorolac [Toradol] 15 mg IV NOW STA
Abnormal Lab Results
01/13/24 01/13/24
14:01 15:58
WBC 2.4 L* 10^3/uL
(4.8-10.8)
RBC 3.15 L 10^6/uL
(4.70-6.10)
Hgb 10.0 L g/dL
(13.0-18.0)
Hct 29.9 L %
(39.0-52.0)
MCV 94.9 H fL
(80.0-94.0)
MCH 31.7 H pg
(27.0-31.0)
RDW 17.0 H %
(11.5-14.5)
Plt Count 96 L 10^3/uL
(130-400)
MPV 11.9 H fL
(7.4-10.4)
Absolute Neuts (auto) 1.3 L 10^3/uL
(1.4-6.5)
Absolute Lymphs (auto) 0.8 L 10^3/uL
(1.2-3.4)
Carbon Dioxide 31 H mmol/L 31 H mmol/L
(22-30) (22-30)
Creatinine 0.5 L mg/dL 0.6 L mg/dL
(0.7-1.3) (0.7-1.3)
Glucose 131 H mg/dl
(70-99)
AST 183 H U/L
(17-59)
ALT 132 H U/L
(0-50)
Albumin 2.9 L g/dl
(3.5-5.0)
01/13/24 14:01
01/13/24 15:58
Vital Signs
Initial and Last Documented VS:
Initial Vital Signs
Temp Pulse Resp BP Pulse Ox
97.8 F 79 18 135/97 100
01/13/24 13:30 01/13/24 13:30 01/13/24 13:30 01/13/24 13:30 01/13/24 13:30
Last Documented Vital Signs
Temp Pulse Resp BP Pulse Ox
97.8 F 69 17 117/78 96
01/13/24 13:30 01/13/24 16:01 01/13/24 16:01 01/13/24 16:00 01/13/24 16:01
<Uriel Avalos Jr., PA-C - Last Filed: 01/13/24 17:42>
Orders/Labs/Results
Orders:
Orders
01/13/24
US Abdomen Limited Urgent
Reason For Exam: PERFORMED IN [facility]
01/13/24 14:01
Basic Metabolic Panel Urgent
Complete Blood Count/With Diff Urgent
01/13/24 14:12
Consult Interventional Radiology [[facility] CONSULT] Urgent
Consulting Provider: Cristino Lazcano
Was physician already notified: Yes
Reason for Consult/Procedure: paracentesis
Acknowledgement that appropriate orders are entered: Yes
Cell Count (Body Fluid) [Body Fluid Cell Count] Urgent
What is the Body Fluid: ascites
Fluid Culture with Gram Stain Urgent
JACOB Source: Peritoneal Fluid
Specimen Description:
01/13/24 14:51
CT Abd/pelvis W Iv Cont Urgent
Comment:
Reason For Exam: abdominal pain
01/13/24 15:58
Ammonia Urgent
Comprehensive Metabolic Panel Urgent
01/13/24 17:11
Dicyclomine HCl [Bentyl] 20 mg IM NOW STA
Ketorolac [Toradol] 15 mg IV NOW STA
Abnormal Lab Results
01/13/24 01/13/24
14:01 15:58
WBC 2.4 L* 10^3/uL
(4.8-10.8)
RBC 3.15 L 10^6/uL
(4.70-6.10)
Hgb 10.0 L g/dL
(13.0-18.0)
Hct 29.9 L %
(39.0-52.0)
MCV 94.9 H fL
(80.0-94.0)
MCH 31.7 H pg
(27.0-31.0)
RDW 17.0 H %
(11.5-14.5)
Plt Count 96 L 10^3/uL
(130-400)
MPV 11.9 H fL
(7.4-10.4)
Absolute Neuts (auto) 1.3 L 10^3/uL
(1.4-6.5)
Absolute Lymphs (auto) 0.8 L 10^3/uL
(1.2-3.4)
Carbon Dioxide 31 H mmol/L 31 H mmol/L
(22-30) (22-30)
Creatinine 0.5 L mg/dL 0.6 L mg/dL
(0.7-1.3) (0.7-1.3)
Glucose 131 H mg/dl
(70-99)
AST 183 H U/L
(17-59)
ALT 132 H U/L
(0-50)
Albumin 2.9 L g/dl
(3.5-5.0)
01/13/24 14:01
01/13/24 15:58
Vital Signs
Initial and Last Documented VS:
Initial Vital Signs
Temp Pulse Resp BP Pulse Ox
97.8 F 79 18 135/97 100
01/13/24 13:30 01/13/24 13:30 01/13/24 13:30 01/13/24 13:30 01/13/24 13:30
Last Documented Vital Signs
Temp Pulse Resp BP Pulse Ox
97.8 F 69 17 117/78 96
01/13/24 13:30 01/13/24 16:01 01/13/24 16:01 01/13/24 16:00 01/13/24 16:01
<Yaakov Hanks PA-C - Last Filed: 01/13/24 14:01>
MDM/Problems Addressed
Differential Diagnosis Includes:
Abdominal distention. History of ascites. Reviewed prior records. He was here 10 days ago and had a paracentesis at which they drained 800 cc out. Do not suspect spontaneous bacterial peritonitis given lack of fever and relatively benign
abdominal exam. Will check basic labs. Reached out to interventional radiology to evaluate for potential for therapeutic paracentesis today
<Uriel Avalos Jr., PA-C - Last Filed: 01/13/24 17:42>
*Critical Care Note
Total Time (30-74mins, 75-104mins- exclusive of procedures): Not Applicable
<Uriel Avalos Jr., PA-C - Last Filed: 01/13/24 17:42>
Update Note
Update Note:
1600: Ed Robbie MARTÍNEZ care transition pending CT scan. CT scan without emergent findings. Paracentesis without significant fluid. Patient generally well-appearing here no distress stable for discharge. Return precautions given. Will follow-up
closely with GI.
ED Attending Note
<Yaakov Hanks PA-C - Last Filed: 01/13/24 14:01>
-
Portions of this chart may have been created with voice recognition software.� Occasional wrong word or��sound alike� substitutions may have occurred due to the inherent limitations of voice recognition software.
Discharge Plan
Departure
Patient Disposition: Home (Routine Discharge)
Date of Disposition: 01/13/24
Time of Disposition: 17:37
Patient with high blood pressure during this ER visit?: No
Condition: Good
Covid-19: Not Applicable
Discharge Problem:
Abdominal pain
Instructions: Abdominal Pain
Prescriptions:
New
dicyclomine 10 mg capsule
10 mg PO QID PRN (Reason: abdominal pain) Qty: 10 0RF
No Action
lactulose 20 gram/30 mL Solution
20 g PO DAILY Qty: 1200 0RF
pantoprazole 40 mg tablet,delayed release (DR/EC)
See Rx Instructions .ROUTE .COMPLEX Qty: 60 0RF
Rx Instructions:
Take 1 Tablet twice daily for 6 weeks THEN
Take 1 tablet daily for maintenance
buprenorphine HCl 8 mg tablet, sublingual
8 mg sublingual DAILY Qty: 14 0RF
sucralfate [Carafate] 1 gram tablet
1 g PO AC Qty: 90 0RF
sumatriptan succinate [Imitrex] 25 mg Tablet
25 mg PO PRN PRN (Reason: headache)
ondansetron HCl [Zofran] 4 mg Tablet
4 mg PO Q8H PRN (Reason: nausea)
albuterol 90 mcg/actuation Aerosol
1 mcg INHALATION PRN PRN (Reason: sob)
spironolactone 50 mg tablet
25 mg PO DAILY
Referrals:
[facility] [Family Provider] -
Activity Restrictions/Additional Instructions:
You came to the emergency department today with concerns of abdominal pain. Here you have a reassuring assessment. Please follow-up closely with GI. Return to the emergency department for any worsening, new or concerning symptoms.
Interventions
Interventions:
*Risk Screen - Suicide Last Done: 01/13/24 13:30
*General Assessment Last Done: 01/13/24 13:30
*Neglect/Abuse Screening Last Done: 01/13/24 13:30
*ED COVID-19 Vaccine History Last Done: 01/13/24 13:43
OT-Yuahum-Heennayetk Assessment Last Done: 01/13/24 14:12
Discharge Date and Time
Print Language: TURKISH
[2024-01-13 14:25] LABS: % Basophils 1.3 % (0-2); % Eosinophils 1.7 % (0-6); % Immature Granulocytes 0.4 % (0-0.5); % Lymphocytes 32.9 % (20.5-51.1); % Monocytes 8.4 % (1.7-9.3); % Neutrophils 55.3 % (42.2-75.2); Absolute Lymphocytes 0.8 10^3/uL (1.2-3.4); Absolute Monocytes 0.2 10^3/uL (0.1-0.6); Absolute Neutrophils 1.3 10^3/uL (1.4-6.5); Hematocrit 29.9 % (39.0-52.0); Mean Corp Hgb Conc. 33.4 g/dL (33.0-37.0); Mean Corpuscular Hgb 31.7 pg (27.0-31.0); Mean Corpuscular Volume 94.9 fL (80.0-94.0); Mean Platelet Volume 11.9 fL (7.4-10.4); Nucleated Red Blood Cells % 0 % (-); Platelet Count 96 10^3/uL (130-400); Red Blood Cell Count 3.15 10^6/uL (4.70-6.10); White Blood Cell Count 2.4 10^3/uL (4.8-10.8)
[2024-01-13 14:28] LABS: Blood Urea Nitrogen 19 mg/dl (9-20); Calcium 8.7 mg/dl (8.4-10.2); Carbon Dioxide 31 mmol/L (22-30); Chloride 104 mmol/L (98-107); Estimated Creatinine Clearance 122 ml/min; Glucose 131 mg/dl (70-99); Sodium 142 mmol/L (135-145); eGFR > 60.00
[2024-01-13 16:00] VITALS: BP 117/78
[2024-01-13 16:18] LABS: Ammonia 26 umol/L (9-30)
[2024-01-13 16:48] LABS: ALT (SGPT) 132 U/L (0-50); AST (SGOT) 183 U/L (17-59); Albumin 2.9 g/dl (3.5-5.0); Alkaline Phosphatase 103 U/L (38-126); Blood Urea Nitrogen 19 mg/dl (9-20); Calcium 8.8 mg/dl (8.4-10.2); Carbon Dioxide 31 mmol/L (22-30); Chloride 103 mmol/L (98-107); Estimated Creatinine Clearance 122 ml/min; Glucose 93 mg/dl (70-99); Potassium 4.4 mmol/L (3.5-5.1); Sodium 141 mmol/L (135-145); Total Bilirubin 0.6 mg/dl (0.2-1.3); Total Protein 6.8 g/dl (6.3-8.2); eGFR > 60.00
[2024-01-13 17:00] VITALS: BP 126/78
[2024-01-13] MEDS: TORADOL 15 MG IV (17:47)
[2024-01-13] MEDS: BENTYL 20 MG IM (17:48)
== END 2024-01-13 17:55 ==
LOC: EMR 13:16
PROVIDERS: Physician Assistant; CONSULT PHYSICIAN Radiology Diagnostic Radiology; EMERGENCY PHYSICIAN Emergency Medicine
DX: R10.9 Unspecified abdominal pain (principal); K74.60 Unspecified cirrhosis of liver; J45.909 Unspecified asthma, uncomplicated; Z87.891 Personal history of nicotine dependence
CPT/HCPCS: 99284; 96374; 96372; 74177; 76705; 80048; 80053; 82140; 85025; Q9967

== ENCOUNTER 2024-01-26 17:05 | Emergency (ER) | payer OTHER, SELFPAY ==
[2024-01-26 17:11] VITALS: BMI 19.6
[2024-01-26 17:16] VITALS: BP 111/56
[2024-01-26 17:17] VITALS: BP 111/53
[2024-01-26 17:59] LABS: ALT (SGPT) 140 U/L (0-50); AST (SGOT) 188 U/L (17-59); Albumin 3.4 g/dl (3.5-5.0); Alkaline Phosphatase 102 U/L (38-126); Blood Urea Nitrogen 22 mg/dl (9-20); Calcium 9.1 mg/dl (8.4-10.2); Carbon Dioxide 31 mmol/L (22-30); Chloride 99 mmol/L (98-107); Estimated Creatinine Clearance 125 ml/min; Glucose 96 mg/dl (70-99); Potassium 4.8 mmol/L (3.5-5.1); Sodium 139 mmol/L (135-145); Total Bilirubin 0.8 mg/dl (0.2-1.3); Total Protein 7.8 g/dl (6.3-8.2); eGFR > 60.00
[2024-01-26] MEDS: TYLENOL 650 MG PO (18:23)
[2024-01-26 18:45] LABS: % Basophils 0.9 % (0-2); % Eosinophils 2.9 % (0-6); % Immature Granulocytes 0.3 % (0-0.5); % Lymphocytes 30.9 % (20.5-51.1); % Monocytes 10.6 % (1.7-9.3); % Neutrophils 54.4 % (42.2-75.2); Absolute Eosinophils 0.1 10^3/uL (0-0.7); Absolute Lymphocytes 1.1 10^3/uL (1.2-3.4); Absolute Monocytes 0.4 10^3/uL (0.1-0.6); Absolute Neutrophils 1.9 10^3/uL (1.4-6.5); Hematocrit 32.3 % (39.0-52.0); Hemoglobin 10.4 g/dL (13.0-18.0); Mean Corp Hgb Conc. 32.2 g/dL (33.0-37.0); Mean Corpuscular Hgb 30.2 pg (27.0-31.0); Mean Corpuscular Volume 93.9 fL (80.0-94.0); Mean Platelet Volume 11.7 fL (7.4-10.4); Nucleated Red Blood Cells % 0 % (-); Red Blood Cell Count 3.44 10^6/uL (4.70-6.10); Red Cell Dist. Width 17.2 % (11.5-14.5); White Blood Cell Count 3.4 10^3/uL (4.8-10.8)
--- NOTE | 2024-01-26 19:20 | ED.GENMED ---
History of Present Illness
General
Chief Complaint: Abdominal Symptoms
Source: patient
Exam Limitations: none
Time Seen by Provider: 01/26/24 17:32
Nursing documentation reviewed up to this point in time: agreed with
History of Present Illness
History of Present Illness:
Patient with history of liver cirrhosis, presents to ED from [facility] secondary to recurrent abdominal pain with distention, with concern that he may need another paracentesis procedure. Patient was in ED earlier this
month, when he presented with similar complaint and received paracentesis by interventional radiology department. Denies chest pain. Denies fever or chills. Denies nausea or vomiting. Patient reports having had normal bowel movement this
morning. Of note, patient states that he has had decreased appetite recently.
Past History
Past History
ED Past Medical History: Asthma and Other
ED Past Surgical History: Appendectomy, Bowel resection and Orthopedic (Ankle surgery)
Social History
Tobacco: Former smoker
Alcohol: None
Personal: Single
Living: alf
Review of Systems
Review of Systems
Allergies reviewed?: Yes
All Other Systems: ROS reviewed and negative except as documented in HPI and ROS
Constitutional: Reports no symptoms; Denies fever
EENT: Reports no symptoms
Respiratory: Reports no symptoms; Denies trouble breathing
Cardiac: Reports no symptoms
ABD/GI: Reports abdominal pain; Denies nausea, vomiting or diarrhea
: Reports no symptoms
Musculoskeletal: Reports no symptoms
Skin: Reports no symptoms
Neurological: Reports no symptoms
Phy Exam
Physical Exam
Physical Exam:
Physical Exam
General: no apparent distress, not acutely ill. afebrile.
Head: nc/at. eomi
Neck: supple. no meningeal signs.
Heart: s1/s2 regular rate and rhythm, no murmur. equal radial pulses.
Lungs: no acute respiratory distress. clear bilaterally
Abdomen: normal bowel sounds. not tender. no distention
Neuro: alert and oriented. no focal neurological deficits
Skin: no rash
Psychiatric: well kept. interactive and cooperative
Extremities: no edema. no calf tenderness.
Course
Orders/Labs/Results
Orders:
Orders
01/26/24 17:31
Complete Blood Count/With Diff Urgent
Comprehensive Metabolic Panel Urgent
01/26/24 18:17
Acetaminophen [Tylenol] 650 mg PO NOW STA
CR Obstruct Series W/pa Chest Urgent
Comment:
Reason For Exam: abdominal pain
Abnormal Lab Results
01/26/24
17:31
WBC 3.4 L 10^3/uL
(4.8-10.8)
RBC 3.44 L 10^6/uL
(4.70-6.10)
Hgb 10.4 L g/dL
(13.0-18.0)
Hct 32.3 L %
(39.0-52.0)
MCHC 32.2 L g/dL
(33.0-37.0)
RDW 17.2 H %
(11.5-14.5)
MPV 11.7 H fL
(7.4-10.4)
Absolute Lymphs (auto) 1.1 L 10^3/uL
(1.2-3.4)
Monocytes % 10.6 H %
(1.7-9.3)
Carbon Dioxide 31 H mmol/L
(22-30)
BUN 22 H mg/dl
(9-20)
Creatinine 0.6 L mg/dL
(0.7-1.3)
AST 188 H U/L
(17-59)
ALT 140 H U/L
(0-50)
Albumin 3.4 L g/dl
(3.5-5.0)
01/26/24 17:31
01/26/24 17:31
Vital Signs
Initial and Last Documented VS:
Initial Vital Signs
BP
111/56
01/26/24 17:16
Last Documented Vital Signs
Temp Pulse Resp BP Pulse Ox
98.1 F 75 16 99/65 95
01/26/24 20:20 01/26/24 20:20 01/26/24 20:20 01/26/24 20:20 01/26/24 20:20
MDM/Problems Addressed
MDM/Problems Addressed:
Pt with unremarkable workup in ED, including blood work and x-ray. Pt able to tolerate meal in ED without any sig discomfort. Repeat abd exam: soft and nontender, without distention. No indication for paracentesis at this time. Pt stable to be
discharged back to alf, with precaution to return with worsening symptoms, ie. fever/worsening pain/distention
*Critical Care Note
Total Time (30-74mins, 75-104mins- exclusive of procedures): Not Applicable
ED Attending Note
-
Portions of this chart may have been created with voice recognition software.� Occasional wrong word or��sound alike� substitutions may have occurred due to the inherent limitations of voice recognition software.
Discharge Plan
Departure
Patient Disposition: Residential
Date of Disposition: 01/26/24
Time of Disposition: 19:49
Patient with high blood pressure during this ER visit?: No
Discharge Problem:
Abdominal pain
Instructions: Abdominal Pain
Prescriptions:
No Action
lactulose 20 gram/30 mL Solution
20 g PO DAILY Qty: 1200 0RF
pantoprazole 40 mg tablet,delayed release (DR/EC)
See Rx Instructions .ROUTE .COMPLEX Qty: 60 0RF
Rx Instructions:
Take 1 Tablet twice daily for 6 weeks THEN
Take 1 tablet daily for maintenance
buprenorphine HCl 8 mg tablet, sublingual
8 mg sublingual DAILY Qty: 14 0RF
sucralfate [Carafate] 1 gram tablet
1 g PO AC Qty: 90 0RF
sumatriptan succinate [Imitrex] 25 mg Tablet
25 mg PO PRN PRN (Reason: headache)
ondansetron HCl [Zofran] 4 mg Tablet
4 mg PO Q8H PRN (Reason: nausea)
albuterol 90 mcg/actuation Aerosol
1 mcg INHALATION PRN PRN (Reason: sob)
spironolactone 50 mg tablet
25 mg PO DAILY
dicyclomine 10 mg capsule
10 mg PO QID PRN (Reason: abdominal pain) Qty: 10 0RF
Referrals:
[facility] [Family Provider] -
Activity Restrictions/Additional Instructions:
As discussed, you are being discharged back to [facility] for continual care. Please return to ED with worsening symptoms, i.e. fever/worsening pain/vomiting.
Interventions
Interventions:
*Risk Screen - Suicide Last Done: 01/26/24 17:10
*General Assessment Last Done: 01/26/24 17:10
*Neglect/Abuse Screening Last Done: 01/26/24 17:10
ED- Fall Risk Assessment Last Done: 01/26/24 20:20
*ED COVID-19 Vaccine History Last Done: 01/26/24 17:10
*Nursing Disposition Last Done: 01/26/24 20:20
BB-Ywuioj-Ppvxvzzgta Assessment Last Done: 01/26/24 17:18
Discharge Date and Time
Discharge Date/Time: 01/26/24 20:20
Print Language: IRISH
[2024-01-26 20:20] VITALS: BP 99/65
== END 2024-01-26 20:20 ==
LOC: EMR 17:05
PROVIDERS: EMERGENCY PHYSICIAN Emergency Medicine
DX: R10.9 Unspecified abdominal pain (principal); J45.909 Unspecified asthma, uncomplicated; K74.60 Unspecified cirrhosis of liver; Z90.49 Acquired absence of other specified parts of digestive tract; Z87.891 Personal history of nicotine dependence
CPT/HCPCS: 99284; 74022; 80053; 85025